=== PATIENT | female | born 1940 | race Caucasian/White ===

== ENCOUNTER 2017-04-13 16:41 | Inpatient (IN) | payer MEDICAID, MEDICARE ==
[~2017-04-13] VITALS: Ht 170.2 cm; Wt 91.2 kg
[2017-04-13 17:39] LABS: BASOPHILS # (AUTO) 0.1 /CMM (0.0-0.2); BASOPHILS % (AUTO) 0.6 % (0.0-2.0); EOSINOPHILS # (AUTO) 0.1 /CMM (0.0-0.7); EOSINOPHILS % (AUTO) 0.4 % (0.0-6.0); HEMATOCRIT 34 % (33-45); HEMOGLOBIN 11.1 g/dL (11.5-14.8); LYMPHOCYTES # (AUTO) 2.9 /CMM (0.8-4.8); MEAN CORPUSCULAR HEMOGLOBIN 30 PG (26.0-33.0); MEAN CORPUSCULAR HGB CONC 33 g/dl (31.0-36.0); MEAN CORPUSCULAR VOLUME 93 fL (82-100); MONOCYTES % (AUTO) 6.8 % (2.0-12.0); NEUTROPHILS # (AUTO) 11.3 /CMM (1.8-8.9); NEUTROPHILS % (AUTO) 73.2 % (43.0-81.0); PLATELET COUNT (AUTO) 388 /CMM (150-450); RDW COEFFICIENT OF VARIATION 18.8 (11.5-15.0); RED BLOOD CELL COUNT(AUTO) 3.68 MIL/uL (4.0-5.2); WHITE BLOOD COUNT (AUTO) 15.4 K/uL (4.3-11.0)
[2017-04-13 17:49] LABS: CALCIUM, SERUM 9.2 mg/dL (8.5-10.1); CARBON DIOXIDE 25 mmol/L (21-32); CHLORIDE 106 mmol/L (98-107); CREATININE 1.2 mg/dL (0.6-1.3); GLUCOSE 155 mg/dL (74-106); POTASSIUM 3.7 mmol/L (3.5-5.1); SODIUM SERUM 138 mmol/L (136-145); UREA NITROGEN, BLOOD 42 mg/dL (7-18)
[2017-04-13 17:56] LABS: APPEARANCE,URINE Clear (CLEAR); BILIRUBIN,URINE Negative (NEGATIVE); BLOOD, URINE Negative Ery/uL (NEGATIVE); COLOR,URINE Yellow (YELLOW); KETONES,URINE Negative (NEGATIVE); LEUKOCYTE ESTERASE ,URINE Negative (NEGATIVE); NITRITE, URINE Negative (NEGATIVE); PROTEIN,URINE 30 mg/dl (NEGATIVE); UGLUCOSE Negative (NEGATIVE); UROBILINOGEN,URINE 0.2 EU/dL (0.2)
[2017-04-13] MEDS ORDERED: CHLO473M3 MM (19:20)
[2017-04-13] MEDS ORDERED: PRED20TA GT (19:20)
[2017-04-13] MEDS ORDERED: LANS30CA56 GT (19:20)
[2017-04-13] MEDS ORDERED: LEVO125T8 GT (19:20)
[2017-04-13] MEDS ORDERED: METO5SOL20 GT (19:20)
[2017-04-13] MEDS ORDERED: METO50TA3 GT (19:20)
[2017-04-13] MEDS ORDERED: MELA3TAB GT (19:20)
[2017-04-13] MEDS ORDERED: INSU3INS6 SQ (19:20)
[2017-04-13] MEDS ORDERED: HYDR-552 GT (19:20)
[2017-04-13] MEDS ORDERED: VIT1TABL46 GT (19:20)
[2017-04-13] MEDS ORDERED: ESCI10TA GT (19:20)
[2017-04-13] MEDS ORDERED: ACET325T53 GT (19:20)
[2017-04-13] MEDS ORDERED: LORA1TAB GT (19:20)
[2017-04-13] MEDS ORDERED: CLON0.1T GT (19:20)
[2017-04-13] MEDS ORDERED: DEXT15DR6 EACHEYE (19:20)
[2017-04-13] MEDS ORDERED: INSU100V27 SQ (19:25)
[2017-04-13 20:00] VITALS: BP_SYST 162; BP_DIAS 68; BP_DIAS 93
[2017-04-13] MEDS ORDERED: HYDROCODONE/APAP 5/325MG 1 EACH TABLET PO PRN (20:30)
[2017-04-13] MEDS ORDERED: MAG HYDROX/AL HYDROX/SIMETH 30 ML UDC GT PRN (20:30)
[2017-04-13] MEDS ORDERED: POLYVINYL ALCOHOL 15 ML BOTTLE EACHEYE PRN (20:30)
[2017-04-13] MEDS ORDERED: Z GUARD REMEDY 2 OZ OINT TP PRN (20:30)
[2017-04-13] MEDS ORDERED: ONDANSETRON HCL/PF 4 MG/2 ML VIAL IVP PRN (20:30)
[2017-04-13] MEDS ORDERED: ACETAMINOPHEN 325 MG TABLET PO PRN (20:30)
[2017-04-13] MEDS ORDERED: INSULIN LISPRO SQ SCH (20:30)
[2017-04-13] MEDS ORDERED: DEXTROSE 50%-WATER 50 ML DISP.SYRIN IV PRN (21:00)
[2017-04-13] MEDS: METOCLOPRAMIDE HCL 10 MG/10 ML UDC GT SCH (21:07)
[2017-04-13] MEDS: CHLORHEXIDINE GLUCONATE 15 ML UDC MM SCH (21:07)
[2017-04-13] MEDS: LORAZEPAM 1 MG TABLET GT PRN (21:08)
[2017-04-13] MEDS: HYDROCODONE/APAP 5/325MG 1 EACH TABLET GT PRN (21:09)
[2017-04-13] MEDS ORDERED: BLOOD SUGAR DIAGNOSTIC 1 EACH STRIP IN SCH (22:00)
[2017-04-13] MEDS: ZOLPIDEM TARTRATE 5 MG TABLET GT PRN (22:31)
[2017-04-14] VITALS: BP 136/58
[2017-04-14] MEDS: BLOOD SUGAR DIAGNOSTIC 1 EACH STRIP IN SCH ×4 (00:29→17:13)
[2017-04-14] MEDS ORDERED: NA PHOS,M-B/NA PHOS,DI-BA 1 EA ENEMA RC ONE (01:14)
[2017-04-14] MEDS: NA PHOS,M-B/NA PHOS,DI-BA 1 EA ENEMA RC PRN ×2 (01:20→14:19)
[2017-04-14] MEDS: MAGNESIUM HYDROXIDE 30 ML UDC GT PRN ×2 (01:37→14:11)
[2017-04-14 04:00] VITALS: BP 166/93
[2017-04-14] MEDS: CLONIDINE HCL 0.1 MG TABLET GT PRN (04:21)
[2017-04-14] MEDS: HYDROCODONE/APAP 5/325MG 1 EACH TABLET GT PRN ×3 (04:21→21:43)
[2017-04-14] MEDS: INSULIN DETEMIR 100 UNIT/ML CARTRIDGE SQ SCH (06:15)
[2017-04-14] MEDS: INSULIN ASPART NOVOLOG 100 UNIT/ML CARTRIDGE SQ PRN ×2 (06:17→17:21)
[2017-04-14 06:30] LABS: BASOPHILS # (AUTO) 0.1 /CMM (0.0-0.2); BASOPHILS % (AUTO) 0.5 % (0.0-2.0); EOSINOPHILS # (AUTO) 0.2 /CMM (0.0-0.7); HEMATOCRIT 34 % (33-45); HEMOGLOBIN 10.9 g/dL (11.5-14.8); LYMPHOCYTES # (AUTO) 2.9 /CMM (0.8-4.8); LYMPHOCYTES % (AUTO) 27.7 % (20.0-44.0); MEAN CORPUSCULAR HEMOGLOBIN 30 PG (26.0-33.0); MEAN CORPUSCULAR HGB CONC 32 g/dl (31.0-36.0); MEAN CORPUSCULAR VOLUME 95 fL (82-100); MONOCYTES # (AUTO) 1.4 /CMM (0.1-1.30); MONOCYTES % (AUTO) 13.6 % (2.0-12.0); NEUTROPHILS # (AUTO) 5.9 /CMM (1.8-8.9); NEUTROPHILS % (AUTO) 56.2 % (43.0-81.0); PLATELET COUNT (AUTO) 337 /CMM (150-450); RED BLOOD CELL COUNT(AUTO) 3.58 MIL/uL (4.0-5.2); WHITE BLOOD COUNT (AUTO) 10.4 K/uL (4.3-11.0)
[2017-04-14 06:59] LABS: CALCIUM, SERUM 9.2 mg/dL (8.5-10.1); CARBON DIOXIDE 25 mmol/L (21-32); CHLORIDE 104 mmol/L (98-107); CREATININE 1.2 mg/dL (0.6-1.3); GLUCOSE 195 mg/dL (74-106); MAGNESIUM 2.2 mg/dL (1.8-2.4); PHOSPHORUS 2.7 mg/dL (2.5-4.9); POTASSIUM 3.3 mmol/L (3.5-5.1); SODIUM SERUM 138 mmol/L (136-145); UREA NITROGEN, BLOOD 44 mg/dL (7-18)
[2017-04-14 07:57] LABS: CHOLESTEROL 160 mg/dL (<200); TRIGLYCERIDES 165 mg/dL (30-150)
[2017-04-14 07:58] LABS: HDL CHOLESTEROL 47 mg/dL (40-60); LDL 79 mg/dL (0-99)
[2017-04-14 08:00] VITALS: BP 131/78
[2017-04-14] MEDS: METOCLOPRAMIDE HCL 10 MG/10 ML UDC GT SCH ×3 (09:25→17:11)
[2017-04-14] MEDS: ESCITALOPRAM OXALATE (10 MG) 10 MG TABLET GT SCH (09:25)
[2017-04-14] MEDS: LEVOTHYROXINE SODIUM 125 MCG TABLET GT SCH (09:25)
[2017-04-14] MEDS: PANTOPRAZOLE 40 MG/PACK PACK GT SCH ×2 (09:25→17:12)
[2017-04-14] MEDS: CHLORHEXIDINE GLUCONATE 15 ML UDC MM SCH ×2 (09:26→20:53)
[2017-04-14] MEDS: predniSONE 20 MG TABLET GT SCH (09:26)
[2017-04-14] MEDS: METOPROLOL TARTRATE 50 MG TABLET GT SCH ×2 (09:30→17:12)
[2017-04-14 12:00] VITALS: BP 125/64
[2017-04-14] MEDS ORDERED: ASPIRIN 325 MG TABLET PO SCH (12:00)
[2017-04-14] MEDS ORDERED: NITROGLYCERIN 0.4 MG/TAB BOTTLE SL PRN (12:00)
[2017-04-14 16:00] VITALS: BP 124/69
[2017-04-14] MEDS: VIT B CMPLX 3/FA/VIT C/BIOTIN 1 TAB TABLET GT SCH (17:12)
[2017-04-14] MEDS ORDERED: Medication Not On Formulary EA (Melatonin 3 MG) GT SCH (18:00)
[2017-04-14 20:00] VITALS: BP 144/85
[2017-04-14] MEDS: LORAZEPAM 1 MG TABLET GT PRN (20:53)
[2017-04-14] MEDS: ZOLPIDEM TARTRATE 5 MG TABLET GT PRN (21:43)
[2017-04-15] VITALS: BP 146/84
[2017-04-15] MEDS: LORAZEPAM 1 MG TABLET GT PRN ×2 (00:10→22:17)
[2017-04-15] MEDS: BLOOD SUGAR DIAGNOSTIC 1 EACH STRIP IN SCH ×4 (00:14→17:49)
[2017-04-15] MEDS: HYDROCODONE/APAP 5/325MG 1 EACH TABLET GT PRN ×2 (03:08→21:21)
[2017-04-15 04:00] VITALS: BP 106/82
[2017-04-15] MEDS: INSULIN ASPART NOVOLOG 100 UNIT/ML CARTRIDGE SQ PRN ×2 (06:00→17:58)
[2017-04-15] MEDS: INSULIN DETEMIR 100 UNIT/ML CARTRIDGE SQ SCH (06:01)
[2017-04-15] MEDS ORDERED: GLYTROL 1,000 ML BAG GT SCH ×2 (06:30→07:42)
[2017-04-15 08:00] VITALS: BP 154/90
[2017-04-15] MEDS: predniSONE 20 MG TABLET GT SCH (08:49)
[2017-04-15] MEDS: ESCITALOPRAM OXALATE (10 MG) 10 MG TABLET GT SCH (08:50)
[2017-04-15] MEDS: PANTOPRAZOLE 40 MG/PACK PACK GT SCH ×2 (08:50→17:48)
[2017-04-15] MEDS: CHLORHEXIDINE GLUCONATE 15 ML UDC MM SCH ×2 (08:50→21:15)
[2017-04-15] MEDS: METOCLOPRAMIDE HCL 10 MG/10 ML UDC GT SCH ×3 (08:50→17:48)
[2017-04-15] MEDS: METOPROLOL TARTRATE 50 MG TABLET GT SCH ×2 (08:50→17:48)
[2017-04-15] MEDS: LEVOTHYROXINE SODIUM 125 MCG TABLET GT SCH (08:55)
[2017-04-15] MEDS: MAGNESIUM HYDROXIDE 30 ML UDC GT PRN (09:00)
[2017-04-15 12:00] VITALS: BP 146/76
[2017-04-15] MEDS ORDERED: ASPIRIN 325 MG TABLET PO SCH (12:00)
[2017-04-15 16:00] VITALS: BP 149/63
[2017-04-15] MEDS: VIT B CMPLX 3/FA/VIT C/BIOTIN 1 TAB TABLET GT SCH (17:48)
[2017-04-15 20:00] VITALS: BP 143/70
[2017-04-16] VITALS: BP 158/87
[2017-04-16] MEDS: BLOOD SUGAR DIAGNOSTIC 1 EACH STRIP IN SCH ×4 (00:53→17:16)
[2017-04-16] MEDS: ZOLPIDEM TARTRATE 5 MG TABLET GT PRN (00:54)
[2017-04-16 04:00] VITALS: BP 153/100
[2017-04-16] MEDS: INSULIN DETEMIR 100 UNIT/ML CARTRIDGE SQ SCH (05:52)
[2017-04-16 07:54] LABS: CALCIUM, SERUM 9.2 mg/dL (8.5-10.1); CARBON DIOXIDE 26 mmol/L (21-32); CHLORIDE 102 mmol/L (98-107); CREATININE 1.3 mg/dL (0.6-1.3); GLUCOSE 167 mg/dL (74-106); POTASSIUM 4.6 mmol/L (3.5-5.1); SODIUM SERUM 134 mmol/L (136-145); UREA NITROGEN, BLOOD 41 mg/dL (7-18)
[2017-04-16 08:00] VITALS: BP 161/91
[2017-04-16] MEDS: CHLORHEXIDINE GLUCONATE 15 ML UDC MM SCH ×2 (08:26→21:47)
[2017-04-16] MEDS: ESCITALOPRAM OXALATE (10 MG) 10 MG TABLET GT SCH (08:27)
[2017-04-16] MEDS: predniSONE 20 MG TABLET GT SCH (08:27)
[2017-04-16] MEDS: METOCLOPRAMIDE HCL 10 MG/10 ML UDC GT SCH ×3 (08:28→17:15)
[2017-04-16] MEDS: PANTOPRAZOLE 40 MG/PACK PACK GT SCH ×2 (08:28→17:14)
[2017-04-16] MEDS: METOPROLOL TARTRATE 50 MG TABLET GT SCH ×2 (08:32→16:53)
[2017-04-16] MEDS: LEVOTHYROXINE SODIUM 125 MCG TABLET GT SCH (08:33)
[2017-04-16 10:37] LABS: BASOPHILS % (AUTO) 0.3 % (0.0-2.0); EOSINOPHILS # (AUTO) 0.1 /CMM (0.0-0.7); EOSINOPHILS % (AUTO) 1.1 % (0.0-6.0); HEMATOCRIT 37 % (33-45); HEMOGLOBIN 11.3 g/dL (11.5-14.8); LYMPHOCYTES # (AUTO) 2.7 /CMM (0.8-4.8); LYMPHOCYTES % (AUTO) 25.2 % (20.0-44.0); MEAN CORPUSCULAR HEMOGLOBIN 30 PG (26.0-33.0); MEAN CORPUSCULAR HGB CONC 31 g/dl (31.0-36.0); MEAN CORPUSCULAR VOLUME 96 fL (82-100); MONOCYTES # (AUTO) 1.3 /CMM (0.1-1.30); MONOCYTES % (AUTO) 11.9 % (2.0-12.0); NEUTROPHILS # (AUTO) 6.7 /CMM (1.8-8.9); NEUTROPHILS % (AUTO) 61.5 % (43.0-81.0); PLATELET COUNT (AUTO) 334 /CMM (150-450); RDW COEFFICIENT OF VARIATION 20.3 (11.5-15.0); RED BLOOD CELL COUNT(AUTO) 3.83 MIL/uL (4.0-5.2); WHITE BLOOD COUNT (AUTO) 10.9 K/uL (4.3-11.0)
[2017-04-16 11:31] VITALS: BP 162/93
[2017-04-16] MEDS: LORAZEPAM 1 MG TABLET GT PRN ×2 (11:47→23:46)
[2017-04-16] MEDS: INSULIN ASPART NOVOLOG 100 UNIT/ML CARTRIDGE SQ PRN ×2 (11:59→17:20)
[2017-04-16] MEDS: RENAL NOVASOURCE 1,000 ML BOTTLE GT PRN (15:16)
[2017-04-16] MEDS: HYDROCODONE/APAP 5/325MG 1 EACH TABLET GT PRN ×2 (15:23→21:47)
[2017-04-16 16:00] VITALS: BP 142/75
[2017-04-16] MEDS: VIT B CMPLX 3/FA/VIT C/BIOTIN 1 TAB TABLET GT SCH (17:21)
[2017-04-16 20:00] VITALS: BP 146/100
[2017-04-17] VITALS (7 sets, daily range): BP systolic 141–160; BP diastolic 76–101
[2017-04-17] MEDS: BLOOD SUGAR DIAGNOSTIC 1 EACH STRIP IN SCH ×5 (00:16→23:33)
[2017-04-17] MEDS: ZOLPIDEM TARTRATE 5 MG TABLET GT PRN (02:02)
[2017-04-17] MEDS: CLONIDINE HCL 0.1 MG TABLET GT PRN (04:52)
[2017-04-17] MEDS: INSULIN DETEMIR 100 UNIT/ML CARTRIDGE SQ SCH (06:18)
[2017-04-17] MEDS: INSULIN ASPART NOVOLOG 100 UNIT/ML CARTRIDGE SQ PRN ×3 (06:18→17:38)
[2017-04-17 08:26] LABS: CALCIUM, SERUM 8.7 mg/dL (8.5-10.1); CARBON DIOXIDE 30 mmol/L (21-32); CREATININE 1.3 mg/dL (0.6-1.3); GLUCOSE 173 mg/dL (74-106); UREA NITROGEN, BLOOD 33 mg/dL (7-18)
[2017-04-17 10:06] LABS: CHLORIDE 103 mmol/L (98-107); POTASSIUM 4.9 mmol/L (3.5-5.1); SODIUM SERUM 139 mmol/L (136-145)
[2017-04-17] MEDS: ESCITALOPRAM OXALATE (10 MG) 10 MG TABLET GT SCH (11:06)
[2017-04-17] MEDS: LEVOTHYROXINE SODIUM 125 MCG TABLET GT SCH (11:06)
[2017-04-17] MEDS: PANTOPRAZOLE 40 MG/PACK PACK GT SCH ×2 (11:06→17:30)
[2017-04-17] MEDS: METOPROLOL TARTRATE 50 MG TABLET GT SCH ×2 (11:06→17:42)
[2017-04-17] MEDS: predniSONE 20 MG TABLET GT SCH (11:06)
[2017-04-17] MEDS: CHLORHEXIDINE GLUCONATE 15 ML UDC MM SCH ×2 (11:07→21:58)
[2017-04-17] MEDS: METOCLOPRAMIDE HCL 10 MG/10 ML UDC GT SCH ×3 (11:07→17:35)
[2017-04-17] MEDS: LORAZEPAM 1 MG TABLET GT PRN (17:31)
[2017-04-17] MEDS: VIT B CMPLX 3/FA/VIT C/BIOTIN 1 TAB TABLET GT SCH (17:31)
[2017-04-17] MEDS: RENAL NOVASOURCE 1,000 ML BOTTLE GT PRN (17:52)
[2017-04-18] VITALS (7 sets, daily range): BP systolic 118–155; BP diastolic 69–88
[2017-04-18] MEDS: INSULIN ASPART NOVOLOG 100 UNIT/ML CARTRIDGE SQ PRN ×5 (05:38→23:44)
[2017-04-18] MEDS: INSULIN DETEMIR 100 UNIT/ML CARTRIDGE SQ SCH (05:39)
[2017-04-18] MEDS: BLOOD SUGAR DIAGNOSTIC 1 EACH STRIP IN SCH ×4 (05:40→23:41)
[2017-04-18] MEDS ORDERED: ALTEPLASE CATHFLO 2 MG/VIAL IV ONE (07:30)
[2017-04-18 07:41] LABS: BASOPHILS % (AUTO) 0.4 % (0.0-2.0); EOSINOPHILS # (AUTO) 0.2 /CMM (0.0-0.7); EOSINOPHILS % (AUTO) 2.4 % (0.0-6.0); HEMATOCRIT 34 % (33-45); HEMOGLOBIN 10.9 g/dL (11.5-14.8); LYMPHOCYTES # (AUTO) 2.2 /CMM (0.8-4.8); LYMPHOCYTES % (AUTO) 25.6 % (20.0-44.0); MEAN CORPUSCULAR HEMOGLOBIN 30 PG (26.0-33.0); MEAN CORPUSCULAR HGB CONC 32 g/dl (31.0-36.0); MEAN CORPUSCULAR VOLUME 95 fL (82-100); MONOCYTES # (AUTO) 0.7 /CMM (0.1-1.30); MONOCYTES % (AUTO) 8.3 % (2.0-12.0); NEUTROPHILS # (AUTO) 5.4 /CMM (1.8-8.9); NEUTROPHILS % (AUTO) 63.3 % (43.0-81.0); PLATELET COUNT (AUTO) 247 /CMM (150-450); RDW COEFFICIENT OF VARIATION 19.4 (11.5-15.0); RED BLOOD CELL COUNT(AUTO) 3.63 MIL/uL (4.0-5.2); WHITE BLOOD COUNT (AUTO) 8.5 K/uL (4.3-11.0)
[2017-04-18] MEDS: HYDROCODONE/APAP 5/325MG 1 EACH TABLET GT PRN (08:23)
[2017-04-18] MEDS: METOCLOPRAMIDE HCL 10 MG/10 ML UDC GT SCH ×3 (08:24→17:10)
[2017-04-18] MEDS: ESCITALOPRAM OXALATE (10 MG) 10 MG TABLET GT SCH (08:24)
[2017-04-18] MEDS: LEVOTHYROXINE SODIUM 125 MCG TABLET GT SCH (08:24)
[2017-04-18] MEDS: PANTOPRAZOLE 40 MG/PACK PACK GT SCH ×2 (08:24→17:10)
[2017-04-18] MEDS: CHLORHEXIDINE GLUCONATE 15 ML UDC MM SCH ×2 (08:24→20:57)
[2017-04-18] MEDS: predniSONE 20 MG TABLET GT SCH (08:24)
[2017-04-18] MEDS: METOPROLOL TARTRATE 50 MG TABLET GT SCH ×2 (08:25→17:10)
[2017-04-18] MEDS: LORAZEPAM 1 MG TABLET GT PRN ×3 (08:46→20:57)
[2017-04-18] MEDS: VIT B CMPLX 3/FA/VIT C/BIOTIN 1 TAB TABLET GT SCH (17:10)
[2017-04-18] MEDS: RENAL NOVASOURCE 1,000 ML BOTTLE GT PRN (17:11)
[2017-04-18] MEDS: MAGNESIUM HYDROXIDE 30 ML UDC GT PRN (20:57)
[2017-04-18] MEDS: ZOLPIDEM TARTRATE 5 MG TABLET GT PRN (23:46)
[2017-04-19] MEDS: BLOOD SUGAR DIAGNOSTIC 1 EACH STRIP IN SCH ×3 (05:51→17:13)
[2017-04-19] MEDS: INSULIN DETEMIR 100 UNIT/ML CARTRIDGE SQ SCH (05:55)
[2017-04-19] MEDS: INSULIN ASPART NOVOLOG 100 UNIT/ML CARTRIDGE SQ PRN ×3 (05:56→17:23)
[2017-04-19 07:02] LABS: CALCIUM, SERUM 8.2 mg/dL (8.5-10.1); CARBON DIOXIDE 32 mmol/L (21-32); CHLORIDE 101 mmol/L (98-107); CREATININE 1.5 mg/dL (0.6-1.3); GLUCOSE 159 mg/dL (74-106); POTASSIUM 4.9 mmol/L (3.5-5.1); SODIUM SERUM 136 mmol/L (136-145); UREA NITROGEN, BLOOD 51 mg/dL (7-18)
[2017-04-19 08:00] VITALS: BP 159/85
[2017-04-19 08:23] LABS: BASOPHILS % (AUTO) 0.1 % (0.0-2.0); EOSINOPHILS # (AUTO) 0.2 /CMM (0.0-0.7); EOSINOPHILS % (AUTO) 1.3 % (0.0-6.0); HEMATOCRIT 35 % (33-45); HEMOGLOBIN 10.9 g/dL (11.5-14.8); LYMPHOCYTES # (AUTO) 3.5 /CMM (0.8-4.8); LYMPHOCYTES % (AUTO) 25.9 % (20.0-44.0); MEAN CORPUSCULAR HEMOGLOBIN 30 PG (26.0-33.0); MEAN CORPUSCULAR HGB CONC 32 g/dl (31.0-36.0); MEAN CORPUSCULAR VOLUME 95 fL (82-100); MONOCYTES # (AUTO) 1.5 /CMM (0.1-1.30); MONOCYTES % (AUTO) 11.2 % (2.0-12.0); NEUTROPHILS # (AUTO) 8.3 /CMM (1.8-8.9); NEUTROPHILS % (AUTO) 61.5 % (43.0-81.0); PLATELET COUNT (AUTO) 266 /CMM (150-450); RDW COEFFICIENT OF VARIATION 19.3 (11.5-15.0); RED BLOOD CELL COUNT(AUTO) 3.66 MIL/uL (4.0-5.2); WHITE BLOOD COUNT (AUTO) 13.6 K/uL (4.3-11.0)
[2017-04-19] MEDS: CHLORHEXIDINE GLUCONATE 15 ML UDC MM SCH ×2 (08:48→21:00)
[2017-04-19] MEDS: PANTOPRAZOLE 40 MG/PACK PACK GT SCH ×2 (08:49→17:13)
[2017-04-19] MEDS: LEVOTHYROXINE SODIUM 125 MCG TABLET GT SCH (08:49)
[2017-04-19] MEDS: METOCLOPRAMIDE HCL 10 MG/10 ML UDC GT SCH ×3 (08:49→17:13)
[2017-04-19] MEDS: METOPROLOL TARTRATE 50 MG TABLET GT SCH ×2 (08:49→17:13)
[2017-04-19] MEDS: predniSONE 20 MG TABLET GT SCH (08:49)
[2017-04-19] MEDS: ESCITALOPRAM OXALATE (10 MG) 10 MG TABLET GT SCH (08:49)
[2017-04-19] MEDS: HYDROCODONE/APAP 5/325MG 1 EACH TABLET GT PRN ×2 (08:59→21:02)
[2017-04-19] MEDS: LORAZEPAM 1 MG TABLET GT PRN (12:06)
[2017-04-19] MEDS: AMLODIPINE BESYLATE 5 MG TABLET PO SCH (13:01)
[2017-04-19] MEDS: NA PHOS,M-B/NA PHOS,DI-BA 1 EA ENEMA RC PRN (13:01)
[2017-04-19] MEDS ORDERED: LIDOCAINE 1%-EPI 1:100,000 20 ML VIAL TP ONE (15:30)
[2017-04-19 16:00] VITALS: BP 135/74
[2017-04-19] MEDS ORDERED: LIDOCAINE 1% INJ 50 ML MDV IJ ONE (16:30)
[2017-04-19] MEDS: VIT B CMPLX 3/FA/VIT C/BIOTIN 1 TAB TABLET GT SCH (17:13)
[2017-04-19 20:00] VITALS: BP 121/87
[2017-04-19] MEDS: RENAL NOVASOURCE 1,000 ML BOTTLE GT PRN (21:02)
[2017-04-20] VITALS (43 sets, daily range): BP systolic 51–143; BP diastolic 31–94
[2017-04-20] MEDS: LORAZEPAM 1 MG TABLET GT PRN (00:05)
[2017-04-20] MEDS: BLOOD SUGAR DIAGNOSTIC 1 EACH STRIP IN SCH ×4 (00:14→18:31)
[2017-04-20] MEDS ORDERED: IV NS 0.9% 0 ML ONE (03:21)
[2017-04-20] MEDS: INSULIN DETEMIR 100 UNIT/ML CARTRIDGE SQ SCH (05:25)
[2017-04-20 05:31] LABS: BASOPHILS # (AUTO) 0.1 /CMM (0.0-0.2); BASOPHILS % (AUTO) 0.3 % (0.0-2.0); EOSINOPHILS % (AUTO) 0.2 % (0.0-6.0); HEMATOCRIT 30 % (33-45); HEMOGLOBIN 9.9 g/dL (11.5-14.8); LYMPHOCYTES # (AUTO) 3.5 /CMM (0.8-4.8); LYMPHOCYTES % (AUTO) 15.9 % (20.0-44.0); MEAN CORPUSCULAR HEMOGLOBIN 30 PG (26.0-33.0); MEAN CORPUSCULAR HGB CONC 33 g/dl (31.0-36.0); MEAN CORPUSCULAR VOLUME 94 fL (82-100); MONOCYTES # (AUTO) 1.5 /CMM (0.1-1.30); NEUTROPHILS # (AUTO) 16.6 /CMM (1.8-8.9); NEUTROPHILS % (AUTO) 76.6 % (43.0-81.0); PLATELET COUNT (AUTO) 243 /CMM (150-450); RDW COEFFICIENT OF VARIATION 18.6 (11.5-15.0); RED BLOOD CELL COUNT(AUTO) 3.25 MIL/uL (4.0-5.2); WHITE BLOOD COUNT (AUTO) 21.7 K/uL (4.3-11.0)
[2017-04-20 05:47] LABS: CALCIUM, SERUM 8.6 mg/dL (8.5-10.1); CARBON DIOXIDE 33 mmol/L (21-32); CHLORIDE 99 mmol/L (98-107); CREATININE 1.7 mg/dL (0.6-1.3); GLUCOSE 170 mg/dL (74-106); MAGNESIUM 2.6 mg/dL (1.8-2.4); PHOSPHORUS 2.7 mg/dL (2.5-4.9); POTASSIUM 5.5 mmol/L (3.5-5.1); SODIUM SERUM 136 mmol/L (136-145); UREA NITROGEN, BLOOD 59 mg/dL (7-18)
[2017-04-20 06:00] LABS: INR 0.92 (0.87-1.13); PROTHROMBIN TIME 9.8 SECS (9.5-12.7)
[2017-04-20] MEDS: LEVOTHYROXINE SODIUM 125 MCG TABLET GT SCH (09:00)
[2017-04-20] MEDS: CHLORHEXIDINE GLUCONATE 15 ML UDC MM SCH ×2 (09:00→21:25)
[2017-04-20] MEDS: METOPROLOL TARTRATE 50 MG TABLET GT SCH ×2 (09:00→17:00)
[2017-04-20] MEDS: PANTOPRAZOLE 40 MG/PACK PACK GT SCH ×2 (09:00→17:00)
[2017-04-20] MEDS: predniSONE 20 MG TABLET GT SCH (09:00)
[2017-04-20] MEDS: AMLODIPINE BESYLATE 5 MG TABLET PO SCH (09:00)
[2017-04-20] MEDS: METOCLOPRAMIDE HCL 10 MG/10 ML UDC GT SCH ×3 (09:00→17:00)
[2017-04-20] MEDS: ESCITALOPRAM OXALATE (10 MG) 10 MG TABLET GT SCH (09:00)
[2017-04-20] MEDS ORDERED: BACITRACIN 50000 UNITS/VIAL ONE (09:35)
[2017-04-20] MEDS ORDERED: FENTANYL PF 100MCG/2ML AMPUL ONE (10:43)
[2017-04-20] MEDS ORDERED: ROCURONIUM BROMIDE 50 MG/5 ML ONE (10:44)
[2017-04-20] MEDS ORDERED: VANCOMYCIN 1 GM VIAL ONE (10:52)
[2017-04-20] MEDS ORDERED: HEPARIN SODIUM, PORCINE 1,000 UNIT/ML VIAL ONE (11:21)
[2017-04-20] MEDS ORDERED: GELATIN SPONGE,ABSORBABLE 1 EA SPONGE TP ONE (11:26)
[2017-04-20] MEDS ORDERED: THROMBIN (BOVINE) 5,000 UNITS VIAL TP ONE (11:27)
[2017-04-20] MEDS ORDERED: CELLULOSE,OXIDIZED 1 EA PACK MC ONE (11:27)
[2017-04-20] MEDS ORDERED: EPHEDRINE SULFATE IV 50MG VIAL ONE (12:03)
[2017-04-20] MEDS ORDERED: FEE PK DOSING 1 MIN EA MC ONE (13:15)
[2017-04-20] MEDS ORDERED: ANESTHESIA TRAY IN PYXIS 1 EA TRAY MC ONE (13:29)
[2017-04-20] MEDS: LEVOFLOXACIN 250 MG /D5W 50 ML 250 MG in PREMIX 1 EA IV SCH (14:00)
[2017-04-20] MEDS ORDERED: VANCOMYCIN 1 GM in IV D5W 250 ML IV ONE (14:00)
[2017-04-20] MEDS ORDERED: SECONDARY IV SET 1 EA INFUS.SET MC ONE (15:45)
[2017-04-20] MEDS ORDERED: IV SET PRIMARY PUMP SET 1 EA INFUS.SET MC ONE ×2 (15:45→18:34)
[2017-04-20] MEDS: HYDROCODONE/APAP 5/325MG 1 EACH TABLET GT PRN (15:52)
[2017-04-20] MEDS ORDERED: ALBUMIN 25% 12.5 GM in PREMIX 1 EA IV PRN (16:30)
[2017-04-20] MEDS ORDERED: ALBUMIN 25% 25 GM in PREMIX 1 EA IV PRN (17:00)
[2017-04-20] MEDS ORDERED: IV NS 0.9% 1,000 ML ONE (17:23)
[2017-04-20] MEDS ORDERED: NOREPINEPHRINE 16 MG in IV D5W 500 ML IV PRN (18:30)
[2017-04-20] MEDS: VIT B CMPLX 3/FA/VIT C/BIOTIN 1 TAB TABLET GT SCH (18:32)
[2017-04-21] VITALS (79 sets, daily range): BP systolic 70–163; BP diastolic 44–104
[2017-04-21] MEDS: RENAL NOVASOURCE 1,000 ML BOTTLE GT PRN (00:27)
[2017-04-21] MEDS: INSULIN ASPART NOVOLOG 100 UNIT/ML CARTRIDGE SQ PRN ×3 (00:28→17:44)
[2017-04-21] MEDS: BLOOD SUGAR DIAGNOSTIC 1 EACH STRIP IN SCH ×4 (01:07→17:33)
[2017-04-21 04:54] LABS: BASOPHILS # (AUTO) 0.1 /CMM (0.0-0.2); BASOPHILS % (AUTO) 0.3 % (0.0-2.0); EOSINOPHILS # (AUTO) 0.1 /CMM (0.0-0.7); EOSINOPHILS % (AUTO) 0.4 % (0.0-6.0); LYMPHOCYTES # (AUTO) 1.6 /CMM (0.8-4.8); LYMPHOCYTES % (AUTO) 6.3 % (20.0-44.0); MEAN CORPUSCULAR HEMOGLOBIN 30 PG (26.0-33.0); MEAN CORPUSCULAR HGB CONC 32 g/dl (31.0-36.0); MEAN CORPUSCULAR VOLUME 94 fL (82-100); MONOCYTES % (AUTO) 7.7 % (2.0-12.0); NEUTROPHILS % (AUTO) 85.3 % (43.0-81.0); PLATELET COUNT (AUTO) 189 /CMM (150-450); RED BLOOD CELL COUNT(AUTO) 2.08 MIL/uL (4.0-5.2); WHITE BLOOD COUNT (AUTO) 25.8 K/uL (4.3-11.0)
[2017-04-21 05:11] LABS: HEMATOCRIT 20 % (33-45)
[2017-04-21 05:15] LABS: HEMOGLOBIN 6.3 g/dL (11.5-14.8)
[2017-04-21 05:19] LABS: CALCIUM, SERUM 7.9 mg/dL (8.5-10.1); CARBON DIOXIDE 33 mmol/L (21-32); CHLORIDE 102 mmol/L (98-107); CREATININE 1.5 mg/dL (0.6-1.3); GLUCOSE 121 mg/dL (74-106); MAGNESIUM 2.2 mg/dL (1.8-2.4); PHOSPHORUS 2.9 mg/dL (2.5-4.9); POTASSIUM 4.5 mmol/L (3.5-5.1); SODIUM SERUM 139 mmol/L (136-145); UREA NITROGEN, BLOOD 42 mg/dL (7-18)
[2017-04-21] MEDS: INSULIN DETEMIR 100 UNIT/ML CARTRIDGE SQ SCH (05:43)
[2017-04-21 05:44] LABS: EOSINOPHILS % (MANUAL) 2 % (0-4); LYMPHOCYTES % (MANUAL) 9 % (16-48); MONOCYTES % (MANUAL) 5 % (0-11.0); NEUTROPHILS % (MANUAL) 84 (42-76)
[2017-04-21] MEDS ORDERED: IV NS 0.9% 250 ML IV ONE ×2 (08:24→18:18)
[2017-04-21] MEDS ORDERED: BLOOD IV SET 1 EA INFUS.SET MC ONE (08:24)
[2017-04-21] MEDS: CHLORHEXIDINE GLUCONATE 15 ML UDC MM SCH ×2 (09:37→21:59)
[2017-04-21] MEDS: METOCLOPRAMIDE HCL 10 MG/10 ML UDC GT SCH ×3 (09:37→17:32)
[2017-04-21] MEDS: LEVOTHYROXINE SODIUM 125 MCG TABLET GT SCH (09:38)
[2017-04-21] MEDS: AMLODIPINE BESYLATE 5 MG TABLET PO SCH (09:38)
[2017-04-21] MEDS: METOPROLOL TARTRATE 50 MG TABLET GT SCH ×2 (09:38→17:33)
[2017-04-21] MEDS: predniSONE 20 MG TABLET GT SCH (09:38)
[2017-04-21] MEDS: PANTOPRAZOLE 40 MG/PACK PACK GT SCH ×2 (09:38→17:32)
[2017-04-21] MEDS: ESCITALOPRAM OXALATE (10 MG) 10 MG TABLET GT SCH (09:38)
[2017-04-21] MEDS ORDERED: EPOETIN ALFA (10,000 UNIT) 10,000 UNIT/ML VIAL SQ ONE (10:00)
[2017-04-21] MEDS: VANCOMYCIN 500 MG in IV D5W 100 ML IV PRN (12:55)
[2017-04-21 14:43] LABS: ABG OXYGEN SATURATION 98.4 % (92.0-98.5); ABG PCO2 39.5 mmHg (35.0-45.0); ABG PH 7.481 (7.350-7.450); AaDO2 78.8 mmHg; COHb 0.8 % (0.5-1.5); O2Hb 96.6 % (94.0-97.0); PEEP,BG 5 cm H2O; SITE, ABG Left Radial; VT, ABG 450 mL
[2017-04-21] MEDS: LORAZEPAM 1 MG TABLET GT PRN (14:56)
[2017-04-21] MEDS: VIT B CMPLX 3/FA/VIT C/BIOTIN 1 TAB TABLET GT SCH (17:33)
[2017-04-22] VITALS (23 sets, daily range): BP systolic 92–162; BP diastolic 41–96
[2017-04-22] MEDS: ZOLPIDEM TARTRATE 5 MG TABLET GT PRN (00:35)
[2017-04-22] MEDS: BLOOD SUGAR DIAGNOSTIC 1 EACH STRIP IN SCH ×5 (00:35→23:47)
[2017-04-22] MEDS: INSULIN ASPART NOVOLOG 100 UNIT/ML CARTRIDGE SQ PRN ×4 (00:41→23:55)
[2017-04-22] MEDS: LORAZEPAM 1 MG TABLET GT PRN (02:43)
[2017-04-22 04:53] LABS: EOSINOPHILS % (AUTO) 0.1 % (0.0-6.0); HEMATOCRIT 26 % (33-45); HEMOGLOBIN 8.7 g/dL (11.5-14.8); LYMPHOCYTES # (AUTO) 2.4 /CMM (0.8-4.8); LYMPHOCYTES % (AUTO) 13.2 % (20.0-44.0); MEAN CORPUSCULAR HEMOGLOBIN 30 PG (26.0-33.0); MEAN CORPUSCULAR HGB CONC 33 g/dl (31.0-36.0); MEAN CORPUSCULAR VOLUME 91 fL (82-100); MONOCYTES # (AUTO) 1.7 /CMM (0.1-1.30); MONOCYTES % (AUTO) 9.6 % (2.0-12.0); NEUTROPHILS # (AUTO) 13.8 /CMM (1.8-8.9); NEUTROPHILS % (AUTO) 77.1 % (43.0-81.0); PLATELET COUNT (AUTO) 207 /CMM (150-450); RDW COEFFICIENT OF VARIATION 18.9 (11.5-15.0); RED BLOOD CELL COUNT(AUTO) 2.89 MIL/uL (4.0-5.2); WHITE BLOOD COUNT (AUTO) 17.9 K/uL (4.3-11.0)
[2017-04-22 05:09] LABS: CALCIUM, SERUM 8.1 mg/dL (8.5-10.1); CARBON DIOXIDE 35 mmol/L (21-32); CHLORIDE 98 mmol/L (98-107); CREATININE 1.5 mg/dL (0.6-1.3); GLUCOSE 164 mg/dL (74-106); MAGNESIUM 2.2 mg/dL (1.8-2.4); PHOSPHORUS 2.2 mg/dL (2.5-4.9); POTASSIUM 4.3 mmol/L (3.5-5.1); SODIUM SERUM 135 mmol/L (136-145); UREA NITROGEN, BLOOD 39 mg/dL (7-18)
[2017-04-22] MEDS: INSULIN DETEMIR 100 UNIT/ML CARTRIDGE SQ SCH (05:41)
[2017-04-22 08:59] LABS: ABG BASE EXCESS 5.4 mmol/L; ABG OXYGEN SATURATION 98.4 % (92.0-98.5); ABG PCO2 41.4 mmHg (35.0-45.0); ABG PH 7.471 (7.350-7.450); ABG PO2 135.1 mmHg (75.0-100.0); AaDO2 66.3 mmHg; MetHb 0.3 % (0.0-1.5); O2Hb 97.1 % (94.0-97.0); PEEP,BG 5 cm H2O; SITE, ABG Left Radial; VENT MODE, BG CPAP PSV 8
[2017-04-22] MEDS: METOPROLOL TARTRATE 50 MG TABLET GT SCH ×2 (09:11→17:11)
[2017-04-22] MEDS: PANTOPRAZOLE 40 MG/PACK PACK GT SCH ×2 (09:11→17:11)
[2017-04-22] MEDS: CHLORHEXIDINE GLUCONATE 15 ML UDC MM SCH ×2 (09:11→21:38)
[2017-04-22] MEDS: AMLODIPINE BESYLATE 5 MG TABLET PO SCH (09:11)
[2017-04-22] MEDS: ESCITALOPRAM OXALATE (10 MG) 10 MG TABLET GT SCH (09:11)
[2017-04-22] MEDS: METOCLOPRAMIDE HCL 10 MG/10 ML UDC GT SCH ×3 (09:11→17:11)
[2017-04-22] MEDS: predniSONE 20 MG TABLET GT SCH (09:12)
[2017-04-22] MEDS: LEVOTHYROXINE SODIUM 125 MCG TABLET GT SCH (09:15)
[2017-04-22] MEDS ORDERED: K PHOS NEUTRAL 250 MG TABLET PO ONE (13:30)
[2017-04-22] MEDS: LEVOFLOXACIN 250 MG /D5W 50 ML 250 MG in PREMIX 1 EA IV SCH (13:57)
[2017-04-22] MEDS: LACTOBACILLUS RHAMNOSUS GG 1 EACH CAP.SPRINK GT SCH (17:11)
[2017-04-22] MEDS: VIT B CMPLX 3/FA/VIT C/BIOTIN 1 TAB TABLET GT SCH (17:11)
[2017-04-22] MEDS: CLONIDINE HCL 0.1 MG TABLET GT PRN (21:39)
[2017-04-22] MEDS: HYDROCODONE/APAP 5/325MG 1 EACH TABLET GT PRN (23:47)
[2017-04-23] VITALS: BP 156/96
[2017-04-23 04:00] VITALS: BP 158/101
[2017-04-23] MEDS: BLOOD SUGAR DIAGNOSTIC 1 EACH STRIP IN SCH ×4 (05:34→23:27)
[2017-04-23] MEDS: INSULIN DETEMIR 100 UNIT/ML CARTRIDGE SQ SCH (05:35)
[2017-04-23] MEDS: HYDROCODONE/APAP 5/325MG 1 EACH TABLET GT PRN ×2 (05:36→21:26)
[2017-04-23 06:53] LABS: BASOPHILS % (AUTO) 0.1 % (0.0-2.0); EOSINOPHILS # (AUTO) 0.1 /CMM (0.0-0.7); EOSINOPHILS % (AUTO) 1.1 % (0.0-6.0); HEMATOCRIT 26 % (33-45); HEMOGLOBIN 8.6 g/dL (11.5-14.8); LYMPHOCYTES # (AUTO) 2.2 /CMM (0.8-4.8); LYMPHOCYTES % (AUTO) 19.2 % (20.0-44.0); MEAN CORPUSCULAR HEMOGLOBIN 30 PG (26.0-33.0); MEAN CORPUSCULAR HGB CONC 33 g/dl (31.0-36.0); MEAN CORPUSCULAR VOLUME 91 fL (82-100); MONOCYTES # (AUTO) 1.5 /CMM (0.1-1.30); MONOCYTES % (AUTO) 13.4 % (2.0-12.0); NEUTROPHILS # (AUTO) 7.5 /CMM (1.8-8.9); NEUTROPHILS % (AUTO) 66.2 % (43.0-81.0); PLATELET COUNT (AUTO) 250 /CMM (150-450); RDW COEFFICIENT OF VARIATION 18.4 (11.5-15.0); RED BLOOD CELL COUNT(AUTO) 2.86 MIL/uL (4.0-5.2); WHITE BLOOD COUNT (AUTO) 11.3 K/uL (4.3-11.0)
[2017-04-23 07:01] LABS: CALCIUM, SERUM 8.1 mg/dL (8.5-10.1); CARBON DIOXIDE 28 mmol/L (21-32); CHLORIDE 99 mmol/L (98-107); CREATININE 1.7 mg/dL (0.6-1.3); GLUCOSE 183 mg/dL (74-106); PHOSPHORUS 3.2 mg/dL (2.5-4.9); POTASSIUM 4.4 mmol/L (3.5-5.1); SODIUM SERUM 136 mmol/L (136-145); UREA NITROGEN, BLOOD 46 mg/dL (7-18); VANCOMYCIN,TROUGH 13 ug/ml (12-20)
[2017-04-23 08:00] VITALS: BP 136/74
[2017-04-23] MEDS: LACTOBACILLUS RHAMNOSUS GG 1 EACH CAP.SPRINK GT SCH ×2 (08:47→16:52)
[2017-04-23] MEDS: PANTOPRAZOLE 40 MG/PACK PACK GT SCH ×2 (08:47→16:53)
[2017-04-23] MEDS: ESCITALOPRAM OXALATE (10 MG) 10 MG TABLET GT SCH (08:48)
[2017-04-23] MEDS: AMLODIPINE BESYLATE 5 MG TABLET PO SCH (08:48)
[2017-04-23] MEDS: LEVOTHYROXINE SODIUM 125 MCG TABLET GT SCH (08:48)
[2017-04-23] MEDS: METOPROLOL TARTRATE 50 MG TABLET GT SCH ×2 (08:49→16:52)
[2017-04-23] MEDS: CHLORHEXIDINE GLUCONATE 15 ML UDC MM SCH ×2 (08:49→20:37)
[2017-04-23] MEDS: predniSONE 20 MG TABLET GT SCH (08:49)
[2017-04-23] MEDS: METOCLOPRAMIDE HCL 10 MG/10 ML UDC GT SCH ×3 (08:52→16:52)
[2017-04-23 12:00] VITALS: BP 155/90
[2017-04-23] MEDS: LORAZEPAM 1 MG TABLET GT PRN ×2 (12:44→23:44)
[2017-04-23 16:00] VITALS: BP 140/73
[2017-04-23] MEDS: VIT B CMPLX 3/FA/VIT C/BIOTIN 1 TAB TABLET GT SCH (16:52)
[2017-04-23] MEDS ORDERED: IV SET PRIMARY 1 EA INFUS.SET MC ONE (16:54)
[2017-04-23] MEDS ORDERED: VANCOMYCIN 1 GM in IV D5W 250 ML IV SCH (17:00)
[2017-04-23] MEDS ORDERED: IV SET PRIMARY PUMP SET 1 EA INFUS.SET MC ONE (17:07)
[2017-04-23] MEDS: INSULIN ASPART NOVOLOG 100 UNIT/ML CARTRIDGE SQ PRN ×2 (17:17→23:36)
[2017-04-23] MEDS ORDERED: FEE PK DOSING 1 MIN EA MC ONE (17:17)
[2017-04-23] MEDS ORDERED: GENTAMICIN 100 MG in IV D5W 100 ML IV ONE (18:00)
[2017-04-23 20:00] VITALS: BP 148/85
[2017-04-23] MEDS: CLONIDINE HCL 0.1 MG TABLET GT PRN (23:45)
[2017-04-24] VITALS (10 sets, daily range): BP systolic 125–163; BP diastolic 81–118
[2017-04-24] MEDS: BLOOD SUGAR DIAGNOSTIC 1 EACH STRIP IN SCH ×5 (05:35→21:39)
[2017-04-24] MEDS: INSULIN DETEMIR 100 UNIT/ML CARTRIDGE SQ SCH (05:40)
[2017-04-24 07:49] LABS: BASOPHILS % (AUTO) 0.3 % (0.0-2.0); EOSINOPHILS # (AUTO) 0.1 /CMM (0.0-0.7); EOSINOPHILS % (AUTO) 1.5 % (0.0-6.0); HEMATOCRIT 23 % (33-45); HEMOGLOBIN 7.4 g/dL (11.5-14.8); LYMPHOCYTES # (AUTO) 2.3 /CMM (0.8-4.8); LYMPHOCYTES % (AUTO) 26.2 % (20.0-44.0); MEAN CORPUSCULAR HEMOGLOBIN 30 PG (26.0-33.0); MEAN CORPUSCULAR HGB CONC 33 g/dl (31.0-36.0); MEAN CORPUSCULAR VOLUME 92 fL (82-100); MONOCYTES # (AUTO) 1.4 /CMM (0.1-1.30); MONOCYTES % (AUTO) 16.2 % (2.0-12.0); NEUTROPHILS # (AUTO) 4.9 /CMM (1.8-8.9); NEUTROPHILS % (AUTO) 55.8 % (43.0-81.0); PLATELET COUNT (AUTO) 240 /CMM (150-450); RDW COEFFICIENT OF VARIATION 17.9 (11.5-15.0); RED BLOOD CELL COUNT(AUTO) 2.49 MIL/uL (4.0-5.2); WHITE BLOOD COUNT (AUTO) 8.8 K/uL (4.3-11.0)
[2017-04-24 08:07] LABS: ALANINE AMINOTRANSFERASE 20 U/L (12-78); ALBUMIN 2.2 g/dL (3.4-5.0); ALKALINE PHOSPHATASE 81 U/L (46-116); ASPARTATE AMINOTRANSFERASE 18 U/L (15-37); BILIRUBIN,TOTAL 0.3 mg/dL (0.2-1.0); CALCIUM, SERUM 7.8 mg/dL (8.5-10.1); CARBON DIOXIDE 31 mmol/L (21-32); CHLORIDE 102 mmol/L (98-107); CREATININE 1.3 mg/dL (0.6-1.3); GLUCOSE 155 mg/dL (74-106); PHOSPHORUS 2.8 mg/dL (2.5-4.9); POTASSIUM 3.8 mmol/L (3.5-5.1); SODIUM SERUM 138 mmol/L (136-145); TOTAL PROTEIN, SERUM 4.8 g/dL (6.4-8.2); UREA NITROGEN, BLOOD 26 mg/dL (7-18)
[2017-04-24] MEDS: ESCITALOPRAM OXALATE (10 MG) 10 MG TABLET GT SCH (09:14)
[2017-04-24] MEDS: LACTOBACILLUS RHAMNOSUS GG 1 EACH CAP.SPRINK GT SCH ×2 (09:14→17:20)
[2017-04-24] MEDS: PANTOPRAZOLE 40 MG/PACK PACK GT SCH ×2 (09:14→17:20)
[2017-04-24] MEDS: METOCLOPRAMIDE HCL 10 MG/10 ML UDC GT SCH ×3 (09:14→17:20)
[2017-04-24] MEDS: LEVOTHYROXINE SODIUM 125 MCG TABLET GT SCH (09:14)
[2017-04-24] MEDS: CHLORHEXIDINE GLUCONATE 15 ML UDC MM SCH ×2 (09:14→21:38)
[2017-04-24] MEDS: METOPROLOL TARTRATE 50 MG TABLET GT SCH ×2 (09:15→17:20)
[2017-04-24] MEDS: AMLODIPINE BESYLATE 5 MG TABLET PO SCH (09:15)
[2017-04-24] MEDS: predniSONE 20 MG TABLET GT SCH (09:15)
[2017-04-24 09:40] LABS: NEUTROPHILS % (MANUAL) 63 (42-76)
[2017-04-24 09:41] LABS: LYMPHOCYTES % (MANUAL) 25 % (16-48); MONOCYTES % (MANUAL) 12 % (0-11.0)
[2017-04-24] MEDS: MAGNESIUM HYDROXIDE 30 ML UDC GT PRN (09:42)
[2017-04-24] MEDS: HYDROCODONE/APAP 5/325MG 1 EACH TABLET GT PRN ×3 (09:42→21:47)
[2017-04-24] MEDS: LORAZEPAM 1 MG TABLET GT PRN (12:26)
[2017-04-24] MEDS: INSULIN ASPART NOVOLOG 100 UNIT/ML CARTRIDGE SQ PRN ×3 (12:28→21:44)
[2017-04-24] MEDS: DAKINS QUARTER STRENGTH (0.125%) 480 ML BOTTLE TOP SCH (15:00)
[2017-04-24] MEDS: NA PHOS,M-B/NA PHOS,DI-BA 1 EA ENEMA RC PRN (17:17)
[2017-04-24] MEDS: VIT B CMPLX 3/FA/VIT C/BIOTIN 1 TAB TABLET GT SCH (17:20)
[2017-04-25] VITALS (7 sets, daily range): BP systolic 129–146; BP diastolic 63–85
[2017-04-25] MEDS: LORAZEPAM 1 MG TABLET GT PRN ×2 (00:07→17:00)
[2017-04-25] MEDS: HYDROCODONE/APAP 5/325MG 1 EACH TABLET GT PRN ×3 (06:11→21:00)
[2017-04-25] MEDS: INSULIN DETEMIR 100 UNIT/ML CARTRIDGE SQ SCH (06:24)
[2017-04-25] MEDS: BLOOD SUGAR DIAGNOSTIC 1 EACH STRIP IN SCH ×4 (07:16→22:53)
[2017-04-25 07:31] LABS: GENTAMICIN,TROUGH 1.4 ug/ml (0.2-2.0)
[2017-04-25] MEDS: CHLORHEXIDINE GLUCONATE 15 ML UDC MM SCH ×2 (09:02→20:52)
[2017-04-25] MEDS: LACTOBACILLUS RHAMNOSUS GG 1 EACH CAP.SPRINK GT SCH ×2 (09:02→17:00)
[2017-04-25] MEDS: LEVOTHYROXINE SODIUM 125 MCG TABLET GT SCH (09:03)
[2017-04-25] MEDS: ESCITALOPRAM OXALATE (10 MG) 10 MG TABLET GT SCH (09:03)
[2017-04-25] MEDS: predniSONE 20 MG TABLET GT SCH (09:04)
[2017-04-25] MEDS: PANTOPRAZOLE 40 MG/PACK PACK GT SCH ×2 (09:04→17:00)
[2017-04-25] MEDS: VIT B CMPLX 3/FA/VIT C/BIOTIN 1 TAB TABLET GT SCH (09:04)
[2017-04-25] MEDS: AMLODIPINE BESYLATE 5 MG TABLET PO SCH (09:04)
[2017-04-25] MEDS: METOPROLOL TARTRATE 50 MG TABLET GT SCH ×2 (09:04→16:59)
[2017-04-25] MEDS: METOCLOPRAMIDE HCL 10 MG/10 ML UDC GT SCH ×3 (09:05→16:59)
[2017-04-25] MEDS: DAKINS QUARTER STRENGTH (0.125%) 480 ML BOTTLE TOP SCH (09:13)
[2017-04-25] MEDS: INSULIN ASPART NOVOLOG 100 UNIT/ML CARTRIDGE SQ PRN ×2 (17:33→23:11)
[2017-04-25] MEDS: ZOLPIDEM TARTRATE 5 MG TABLET GT PRN (22:53)
[2017-04-25] MEDS ORDERED: INSULIN REGULAR, HUMAN 100 UNIT/ML 10 ML VIAL ONE (23:04)
[2017-04-25] MEDS ORDERED: SECONDARY IV SET 1 EA INFUS.SET MC ONE (23:42)
[2017-04-25] MEDS: GENTAMICIN 80 MG in IV D5W 50 ML IV PRN (23:48)
[2017-04-26] VITALS (7 sets, daily range): BP systolic 137–166; BP diastolic 83–100
[2017-04-26] MEDS: VANCOMYCIN 500 MG in IV D5W 100 ML IV PRN (00:27)
[2017-04-26] MEDS: LORAZEPAM 1 MG TABLET GT PRN ×2 (05:04→17:05)
[2017-04-26] MEDS: HYDROCODONE/APAP 5/325MG 1 EACH TABLET GT PRN ×5 (05:05→20:04)
[2017-04-26] MEDS: BLOOD SUGAR DIAGNOSTIC 1 EACH STRIP IN SCH ×4 (06:32→22:15)
[2017-04-26] MEDS: INSULIN ASPART NOVOLOG 100 UNIT/ML CARTRIDGE SQ PRN ×2 (06:35→17:08)
[2017-04-26] MEDS: INSULIN DETEMIR 100 UNIT/ML CARTRIDGE SQ SCH (06:35)
[2017-04-26] MEDS: predniSONE 20 MG TABLET GT SCH (08:59)
[2017-04-26] MEDS: METOCLOPRAMIDE HCL 10 MG/10 ML UDC GT SCH ×3 (08:59→16:30)
[2017-04-26] MEDS: CHLORHEXIDINE GLUCONATE 15 ML UDC MM SCH ×2 (08:59→22:13)
[2017-04-26] MEDS: ESCITALOPRAM OXALATE (10 MG) 10 MG TABLET GT SCH (08:59)
[2017-04-26] MEDS: LACTOBACILLUS RHAMNOSUS GG 1 EACH CAP.SPRINK GT SCH ×2 (08:59→16:29)
[2017-04-26] MEDS: AMLODIPINE BESYLATE 5 MG TABLET PO SCH (09:00)
[2017-04-26] MEDS: METOPROLOL TARTRATE 50 MG TABLET GT SCH ×2 (09:00→16:29)
[2017-04-26] MEDS: PANTOPRAZOLE 40 MG/PACK PACK GT SCH ×2 (09:00→16:28)
[2017-04-26] MEDS: DAKINS QUARTER STRENGTH (0.125%) 480 ML BOTTLE TOP SCH (09:00)
[2017-04-26] MEDS: LEVOTHYROXINE SODIUM 125 MCG TABLET GT SCH (09:10)
[2017-04-26] MEDS: VIT B CMPLX 3/FA/VIT C/BIOTIN 1 TAB TABLET GT SCH (17:08)
[2017-04-27] MEDS: HYDROCODONE/APAP 5/325MG 1 EACH TABLET GT PRN ×4 (01:54→21:25)
[2017-04-27 04:00] VITALS: BP 185/91
[2017-04-27] MEDS: LORAZEPAM 1 MG TABLET GT PRN ×3 (05:06→21:41)
[2017-04-27] MEDS: CLONIDINE HCL 0.1 MG TABLET GT PRN (05:48)
[2017-04-27 06:17] VITALS: BP 185/91
[2017-04-27] MEDS: BLOOD SUGAR DIAGNOSTIC 1 EACH STRIP IN SCH ×4 (06:31→21:30)
[2017-04-27] MEDS: INSULIN ASPART NOVOLOG 100 UNIT/ML CARTRIDGE SQ PRN ×2 (06:35→21:39)
[2017-04-27] MEDS: INSULIN DETEMIR 100 UNIT/ML CARTRIDGE SQ SCH (06:35)
[2017-04-27 06:51] LABS: CALCIUM, SERUM 8.1 mg/dL (8.5-10.1); CARBON DIOXIDE 30 mmol/L (21-32); CHLORIDE 100 mmol/L (98-107); CREATININE 1.7 mg/dL (0.6-1.3); GLUCOSE 118 mg/dL (74-106); POTASSIUM 5.3 mmol/L (3.5-5.1); SODIUM SERUM 136 mmol/L (136-145); UREA NITROGEN, BLOOD 29 mg/dL (7-18)
[2017-04-27 07:00] LABS: GENTAMICIN,TROUGH 2.2 ug/ml (0.2-2.0)
[2017-04-27 07:22] LABS: BASOPHILS % (AUTO) 0.1 % (0.0-2.0); EOSINOPHILS % (AUTO) 0.3 % (0.0-6.0); HEMATOCRIT 26 % (33-45); HEMOGLOBIN 8.1 g/dL (11.5-14.8); LYMPHOCYTES # (AUTO) 3.2 /CMM (0.8-4.8); LYMPHOCYTES % (AUTO) 31.9 % (20.0-44.0); MEAN CORPUSCULAR HEMOGLOBIN 30 PG (26.0-33.0); MEAN CORPUSCULAR HGB CONC 32 g/dl (31.0-36.0); MEAN CORPUSCULAR VOLUME 94 fL (82-100); MONOCYTES # (AUTO) 1.2 /CMM (0.1-1.30); MONOCYTES % (AUTO) 11.9 % (2.0-12.0); NEUTROPHILS # (AUTO) 5.6 /CMM (1.8-8.9); NEUTROPHILS % (AUTO) 55.8 % (43.0-81.0); PLATELET COUNT (AUTO) 388 /CMM (150-450); RDW COEFFICIENT OF VARIATION 18.8 (11.5-15.0); RED BLOOD CELL COUNT(AUTO) 2.73 MIL/uL (4.0-5.2)
[2017-04-27 08:00] VITALS: BP 154/97
[2017-04-27] MEDS: predniSONE 20 MG TABLET GT SCH (08:32)
[2017-04-27] MEDS: PANTOPRAZOLE 40 MG/PACK PACK GT SCH ×2 (08:32→17:24)
[2017-04-27] MEDS: METOCLOPRAMIDE HCL 10 MG/10 ML UDC GT SCH ×3 (08:32→17:23)
[2017-04-27] MEDS: ESCITALOPRAM OXALATE (10 MG) 10 MG TABLET GT SCH (08:32)
[2017-04-27] MEDS: AMLODIPINE BESYLATE 5 MG TABLET PO SCH (08:33)
[2017-04-27] MEDS: CHLORHEXIDINE GLUCONATE 15 ML UDC MM SCH ×2 (08:35→21:23)
[2017-04-27] MEDS: METOPROLOL TARTRATE 50 MG TABLET GT SCH ×2 (08:35→17:00)
[2017-04-27] MEDS: LACTOBACILLUS RHAMNOSUS GG 1 EACH CAP.SPRINK GT SCH ×2 (08:35→17:28)
[2017-04-27] MEDS: DAKINS QUARTER STRENGTH (0.125%) 480 ML BOTTLE TOP SCH (08:37)
[2017-04-27] MEDS: LEVOTHYROXINE SODIUM 125 MCG TABLET GT SCH (09:15)
[2017-04-27 16:00] VITALS: BP 101/53
[2017-04-27] MEDS ORDERED: IV SET PRIMARY PUMP SET 1 EA INFUS.SET MC ONE (16:10)
[2017-04-27] MEDS: GENTAMICIN 80 MG in IV D5W 50 ML IV PRN (16:12)
[2017-04-27] MEDS: VIT B CMPLX 3/FA/VIT C/BIOTIN 1 TAB TABLET GT SCH (17:23)
[2017-04-27 20:00] VITALS: BP 133/75
[2017-04-28 04:00] VITALS: BP 147/83
[2017-04-28] MEDS: HYDROCODONE/APAP 5/325MG 1 EACH TABLET GT PRN ×4 (04:43→20:26)
[2017-04-28] MEDS: INSULIN DETEMIR 100 UNIT/ML CARTRIDGE SQ SCH (06:00)
[2017-04-28] MEDS: BLOOD SUGAR DIAGNOSTIC 1 EACH STRIP IN SCH ×4 (06:38→22:25)
[2017-04-28 08:00] VITALS: BP 142/84
[2017-04-28] MEDS: LACTOBACILLUS RHAMNOSUS GG 1 EACH CAP.SPRINK GT SCH ×2 (08:15→17:26)
[2017-04-28] MEDS: ESCITALOPRAM OXALATE (10 MG) 10 MG TABLET GT SCH (08:15)
[2017-04-28] MEDS: PANTOPRAZOLE 40 MG/PACK PACK GT SCH ×2 (08:16→17:27)
[2017-04-28] MEDS: METOCLOPRAMIDE HCL 10 MG/10 ML UDC GT SCH ×3 (08:16→17:27)
[2017-04-28] MEDS: predniSONE 20 MG TABLET GT SCH (08:16)
[2017-04-28] MEDS: AMLODIPINE BESYLATE 5 MG TABLET PO SCH (08:16)
[2017-04-28] MEDS: CHLORHEXIDINE GLUCONATE 15 ML UDC MM SCH ×2 (08:18→20:25)
[2017-04-28] MEDS: DAKINS QUARTER STRENGTH (0.125%) 480 ML BOTTLE TOP SCH (08:18)
[2017-04-28] MEDS: METOPROLOL TARTRATE 50 MG TABLET GT SCH ×2 (08:25→17:26)
[2017-04-28] MEDS: LEVOTHYROXINE SODIUM 125 MCG TABLET GT SCH (08:25)
[2017-04-28 08:47] LABS: CALCIUM, SERUM 8.1 mg/dL (8.5-10.1); CARBON DIOXIDE 30 mmol/L (21-32); CHLORIDE 100 mmol/L (98-107); CREATININE 1.6 mg/dL (0.6-1.3); GLUCOSE 127 mg/dL (74-106); POTASSIUM 4.8 mmol/L (3.5-5.1); SODIUM SERUM 137 mmol/L (136-145); UREA NITROGEN, BLOOD 21 mg/dL (7-18)
[2017-04-28] MEDS: MAGNESIUM HYDROXIDE 30 ML UDC GT PRN (10:53)
[2017-04-28] MEDS ORDERED: VANC500F2 IV (13:19)
[2017-04-28] MEDS ORDERED: LACT1CAP72 GT (13:19)
[2017-04-28] MEDS ORDERED: AMLO5TAB2 PO (13:19)
[2017-04-28] MEDS ORDERED: Renal Novasource GT (13:19)
[2017-04-28] MEDS: LORAZEPAM 1 MG TABLET GT PRN ×2 (13:35→23:52)
[2017-04-28 16:00] VITALS: BP 150/87
[2017-04-28] MEDS: VIT B CMPLX 3/FA/VIT C/BIOTIN 1 TAB TABLET GT SCH (17:29)
[2017-04-28] MEDS: INSULIN ASPART NOVOLOG 100 UNIT/ML CARTRIDGE SQ PRN (17:29)
[2017-04-28 20:00] VITALS: BP 150/88
[2017-04-29 04:00] VITALS: BP 162/88
[2017-04-29] MEDS: HYDROCODONE/APAP 5/325MG 1 EACH TABLET GT PRN ×2 (05:03→12:50)
[2017-04-29] MEDS: INSULIN DETEMIR 100 UNIT/ML CARTRIDGE SQ SCH (05:10)
[2017-04-29] MEDS: BLOOD SUGAR DIAGNOSTIC 1 EACH STRIP IN SCH ×3 (07:30→17:30)
[2017-04-29 08:00] VITALS: BP 187/104
[2017-04-29 08:13] LABS: CALCIUM, SERUM 8.1 mg/dL (8.5-10.1); CARBON DIOXIDE 34 mmol/L (21-32); CHLORIDE 101 mmol/L (98-107); CREATININE 1.2 mg/dL (0.6-1.3); GLUCOSE 117 mg/dL (74-106); POTASSIUM 4.4 mmol/L (3.5-5.1); SODIUM SERUM 137 mmol/L (136-145); UREA NITROGEN, BLOOD 18 mg/dL (7-18)
[2017-04-29] MEDS: AMLODIPINE BESYLATE 5 MG TABLET PO SCH (08:58)
[2017-04-29] MEDS: METOPROLOL TARTRATE 50 MG TABLET GT SCH ×2 (08:59→17:00)
[2017-04-29] MEDS: LEVOTHYROXINE SODIUM 125 MCG TABLET GT SCH (08:59)
[2017-04-29] MEDS: predniSONE 20 MG TABLET GT SCH (09:00)
[2017-04-29] MEDS: LACTOBACILLUS RHAMNOSUS GG 1 EACH CAP.SPRINK GT SCH ×2 (09:01→17:00)
[2017-04-29] MEDS: PANTOPRAZOLE 40 MG/PACK PACK GT SCH ×2 (09:01→17:00)
[2017-04-29] MEDS: ESCITALOPRAM OXALATE (10 MG) 10 MG TABLET GT SCH (09:01)
[2017-04-29] MEDS: METOCLOPRAMIDE HCL 10 MG/10 ML UDC GT SCH ×3 (09:01→17:00)
[2017-04-29] MEDS: CHLORHEXIDINE GLUCONATE 15 ML UDC MM SCH (09:01)
[2017-04-29] MEDS: DAKINS QUARTER STRENGTH (0.125%) 480 ML BOTTLE TOP SCH (09:09)
[2017-04-29 09:30] VITALS: BP 168/82
[2017-04-29] MEDS ORDERED: VANCOMYCIN 1 GM in IV D5W 250 ML IV ONE (11:30)
[2017-04-29] MEDS ORDERED: PLATELET IV SET 1 EA INFUS.SET MC ONE (12:29)
[2017-04-29] MEDS ORDERED: IV SET PRIMARY PUMP SET 1 EA INFUS.SET MC ONE (12:30)
[2017-04-29] MEDS: INSULIN ASPART NOVOLOG 100 UNIT/ML CARTRIDGE SQ PRN (13:01)
[2017-04-29 16:00] VITALS: BP 144/90
[2017-04-29] MEDS: LORAZEPAM 1 MG TABLET GT PRN (17:59)
== END 2017-04-29 18:24 | DRG 173 ==
LOC: ER 17:00 → TELE1 18:07 → TELE 04-16 11:11 → MED 04-18 21:56 → ICU 04-20 15:17 → MEDSG1 04-22 18:10 → TELE-TD 04-22 18:37 → TELE1 04-23 09:01 → MEDSG1 04-26 12:50
PROVIDERS: ADMIT Family Medicine; ATTEND Family Medicine
PROC: 5A1D60Z (ICD-10-PCS; principal; 2017-04-14)
PROC: 06BP0ZZ Excision of Right Saphenous Vein, Open Approach (ICD-10-PCS; 2017-04-20)
PROC: 5A1945Z Respiratory Ventilation, 24-96 Consecutive Hours (ICD-10-PCS; 2017-04-20)
PROC: 03770ZZ Dilation of Right Brachial Artery, Open Approach (ICD-10-PCS; 2017-04-20)
PROC: 03U Upper Arteries, Supplement (ICD-10-PCS; 2017-04-20)
PROC: 02HV33Z Insertion of Infusion Device into Superior Vena Cava, Percutaneous Approach (ICD-10-PCS; 2017-04-21)
PROC: 30233N1 Transfusion of Nonautologous Red Blood Cells into Peripheral Vein, Percutaneous Approach (ICD-10-PCS; 2017-04-21)
PROC: B548ZZA Ultrasonography of Superior Vena Cava, Guidance (ICD-10-PCS; 2017-04-21)
PROC: 0KB70ZZ Excision of Right Upper Arm Muscle, Open Approach (ICD-10-PCS; 2017-04-25)
DX: T82.7XXA Infection and inflammatory reaction due to other cardiac and vascular devices, implants and grafts, initial encounter (principal); J96.21 Acute and chronic respiratory failure with hypoxia; R65.21 Severe sepsis with septic shock; J18.9 Pneumonia, unspecified organism; N18.6 End stage renal disease; Z93.0 Tracheostomy status; I12.0 Hypertensive chronic kidney disease with stage 5 chronic kidney disease or end stage renal disease; T82.41XA Breakdown (mechanical) of vascular dialysis catheter, initial encounter; T82.838A Hemorrhage due to vascular prosthetic devices, implants and grafts, initial encounter; I95.9 Hypotension, unspecified; R13.10 Dysphagia, unspecified; E03.9 Hypothyroidism, unspecified; Z93.1 Gastrostomy status; Z99.2 Dependence on renal dialysis; I25.10 Atherosclerotic heart disease of native coronary artery without angina pectoris; D63.8 Anemia in other chronic diseases classified elsewhere; F32.9 Major depressive disorder, single episode, unspecified; E11.22 Type 2 diabetes mellitus with diabetic chronic kidney disease; E66.9 Obesity, unspecified; E87.5 Hyperkalemia; J44.9 Chronic obstructive pulmonary disease, unspecified; K59.00 Constipation, unspecified; Z79.899 Other long term (current) drug therapy; Y71.2 Prosthetic and other implants, materials and accessory cardiovascular devices associated with adverse incidents; Z95.0 Presence of cardiac pacemaker; E83.9 Disorder of mineral metabolism, unspecified; Y84.9 Medical procedure, unspecified as the cause of abnormal reaction of the patient, or of later complication, without mention of misadventure at the time of the procedure; Y92.129 Unspecified place in nursing home as the place of occurrence of the external cause; I72.8 Aneurysm of other specified arteries; N39.0 Urinary tract infection, site not specified; B96.20 Unspecified Escherichia coli [E. coli] as the cause of diseases classified elsewhere; S41.101A Unspecified open wound of right upper arm, initial encounter; L98.8 Other specified disorders of the skin and subcutaneous tissue; L89.621 Pressure ulcer of left heel, stage 1; L89.611 Pressure ulcer of right heel, stage 1; K21.9 Gastro-esophageal reflux disease without esophagitis; K62.89 Other specified diseases of anus and rectum; Y83.2 Surgical operation with anastomosis, bypass or graft as the cause of abnormal reaction of the patient, or of later complication, without mention of misadventure at the time of the procedure; B95.62 Methicillin resistant Staphylococcus aureus infection as the cause of diseases classified elsewhere
CPT/HCPCS: 31720; 36415; 36569; 36600; 71010-TC; 80048-TC; 80053-TC; 80061-TC; 80170-TC; 80202-TC; 81000-TC; 82803-TC; 82962-TC; 83735-TC; 84100-TC; 84484-TC; 85025-TC; 85610-TC; 85730-TC; 86850-TC; 86921-TC; 87040-TC; 87070-TC; 87081-TC; 87086-TC; 87186-TC; 90935-TC; 92526; 92611-TC; 93307-TC; 94003-TC; 94640-TC; 94760-TC; 94762-TC; 94799-TC; A4216; A4606; A4623; A6253; A6402; A6403; A7526; C1751; C1769; J0885; J1580; J1644; J1815; J1956; J2370; J2704; J2997; J3010; J3370; J3490; J7030; J7050; J7060; J8597; P9016-BL; P9047; Z7610

== ENCOUNTER 2017-05-11 14:29 | Inpatient (IN) | payer MEDICAID, MEDICARE ==
[~2017-05-11] VITALS: Ht 162.6 cm; Wt 86.2 kg
[~2017-05-11 14:29] MED LIST: ACET325T53 GT; AMLO5TAB2 PO; CHLO473M3 MM; CLON0.1T GT; DEXT15DR6 EACHEYE; ESCI10TA GT; HYDR-552 GT; INSU100V27 SQ; INSU3INS6 SQ; LACT1CAP72 GT; LANS30CA56 GT; LEVO125T8 GT; LORA1TAB GT; MELA3TAB GT; METO50TA3 GT; METO5SOL20 GT; PRED20TA GT; Renal Novasource GT; VANC500F2 IV; VIT1TABL46 GT
--- NOTE | 2017-05-11 14:40 | NUR ---
JURGEN FROM [facility] DUE TO CHEST PAIN 20 MINS CUSTOMER CARE REPRESENTATIVE, 04/02, RADIATING TO LEFT ARM. PATIENT IS AAO3 WITH CONFUSION. NOPTED WITH HD CATH ON RCW-- PATIENT IS SUPPOSED TO GO TO HD BUT WAS SENT TO ED DUE TO COMPLAINT ABOVE. PIV ACCESS NOTED ON VINNIE. SKIN IS WARM TO TOUCH AND NON DIAPHORETIC. PATIENT IS AFEBRILE. VSS
--- NOTE | 2017-05-11 14:59 | NUR ---
BOLT LOADER AT FOR BLOOD DRAW
[2017-05-11] MEDS ORDERED: ASPIRIN 81 MG TAB.CHEW PO ONE (15:00)
[2017-05-11] MEDS ORDERED: ASPIRIN 81 MG TAB.CHEW ONE (15:03)
[2017-05-11] MEDS ORDERED: ONDANSETRON HCL/PF 4 MG/2 ML VIAL ONE (15:12)
[2017-05-11] MEDS ORDERED: MORPHINE SULFATE INJ 4 MG/ML DISP.SYRIN ONE (15:12)
[2017-05-11 15:21] LABS: CALCIUM, SERUM 8.9 mg/dL (8.5-10.1); CARBON DIOXIDE 26 mmol/L (21-32); CHLORIDE 103 mmol/L (98-107); CREATININE 1.7 mg/dL (0.6-1.3); GLUCOSE 262 mg/dL (74-106); SODIUM SERUM 137 mmol/L (136-145); UREA NITROGEN, BLOOD 48 mg/dL (7-18)
[2017-05-11 15:27] LABS: BASOPHILS # (AUTO) 0.1 /CMM (0.0-0.2); BASOPHILS % (AUTO) 0.5 % (0.0-2.0); EOSINOPHILS # (AUTO) 0.1 /CMM (0.0-0.7); EOSINOPHILS % (AUTO) 0.6 % (0.0-6.0); HEMATOCRIT 33 % (33-45); HEMOGLOBIN 10.3 g/dL (11.5-14.8); LYMPHOCYTES # (AUTO) 1.4 /CMM (0.8-4.8); LYMPHOCYTES % (AUTO) 13.9 % (20.0-44.0); MEAN CORPUSCULAR HEMOGLOBIN 29 PG (26.0-33.0); MEAN CORPUSCULAR HGB CONC 31 g/dl (31.0-36.0); MEAN CORPUSCULAR VOLUME 95 fL (82-100); MONOCYTES # (AUTO) 0.2 /CMM (0.1-1.30); MONOCYTES % (AUTO) 1.7 % (2.0-12.0); NEUTROPHILS # (AUTO) 8.4 /CMM (1.8-8.9); NEUTROPHILS % (AUTO) 83.3 % (43.0-81.0); PLATELET COUNT (AUTO) 261 /CMM (150-450); RDW COEFFICIENT OF VARIATION 18.4 (11.5-15.0); RED BLOOD CELL COUNT(AUTO) 3.52 MIL/uL (4.0-5.2); WHITE BLOOD COUNT (AUTO) 10.2 K/uL (4.3-11.0)
[2017-05-11] MEDS ORDERED: ONDANSETRON HCL/PF 4 MG/2 ML VIAL IV ONE (15:30)
[2017-05-11] MEDS ORDERED: MORPHINE SULFATE INJ 2 MG/ML DISP.SYRIN IV ONE (15:30)
[2017-05-11 15:31] LABS: INR 0.9 (0.87-1.13); PROTHROMBIN TIME 9.3 SECS (9.5-12.7); TROPONIN I 0.022 ng/mL (0.00-0.056)
--- NOTE | 2017-05-11 15:44 | NUR ---
TELE 306-8
--- NOTE | 2017-05-11 15:57 | NUR ---
PT NOTED TO BE HYPERTENSIVE. C/O SEVERE PAIN. MD AND PRIMARY RN VLAD NOTIFIED.
--- NOTE | 2017-05-11 16:03 | NUR ---
RECHECK BLOOD PRESSURE 157/87 NOTIFIED PT STILL IN PAIN
[2017-05-11] MEDS ORDERED: NITROGLYCERIN 0.4 MG/TAB BOTTLE ONE (16:12)
--- NOTE | 2017-05-11 16:24 | NUR ---
GAVE REPORT TO LIZZY JACQUESLOAN AND CREDIT MANAGER DX CHEST PAIN. TRANSFER VIA ACLS PROTOCOL. DR NICOLAS PENALOZA ADMITTING . CONTACT ISO MRSA WOUND
[2017-05-11] MEDS ORDERED: NITROGLYCERIN 0.4 MG/TAB BOTTLE SL PRN (16:30)
--- NOTE | 2017-05-11 16:32 | NUR ---
NIDIA PAGED, NICOLAS PENALOZA SHIPPING AND RECEIVING OPERATOR
[2017-05-11 17:30] VITALS: BP 130/85
--- NOTE | 2017-05-11 17:30 | NUR ---
CERTIFIED INDUSTRIAL HYGIENIST NOTES RECEIVED PATIENT FROM ER VIA LC. PATIENT ALERT AND ORIENTED X3. PATIENT HAS A TRACH ON AEROSOL 5LPM O2. TELEMETRY AFIB HR 85. PATIENT HAS PICC LINE ON LEFT UPPER ARM, RIGHT CHEST WALL HD CATH, GTUBE IN PLACE. NO COMPLAINS OF PAIN OR DISCOMFORT AT THIS TIME. KEPT PATIENT SAFE, BED IN LOWEST POSITION, HOB ELEVATED, CALL LIGHT WITHIN REACH. WILL CONTINUE TO MONITOR ACCORDINGLY.
[2017-05-11] MEDS ORDERED: DEXT15DR6 EACHEYE (17:44)
[2017-05-11] MEDS ORDERED: DOCU100T2 GT (17:44)
[2017-05-11] MEDS ORDERED: NUTR100037 GT (17:50)
[2017-05-11] MEDS ORDERED: LEVA0.6320 NEB (17:50)
[2017-05-11 17:58] LABS: LYMPHOCYTES % (MANUAL) 18 % (16-48); MONOCYTES % (MANUAL) 2 % (0-11.0); NEUTROPHILS % (MANUAL) 80 (42-76)
[2017-05-11] MEDS ORDERED: LORA2TAB GT (18:06)
--- NOTE | 2017-05-11 19:00 | NUR ---
CYLINDER HONER NOTES PATIENT IN BED RESTING. NO CHANGE OF CONDITION. NO ACUTE DISTRESS, NO SOB NOTED. ALL NEEDS ATTENDED AND PROVIDED. KEPT A SAFE ENVIRONMENT. ENDORSED TO NIGHT RN FOR CONTINUITY OF CARE.
[2017-05-11] MEDS ORDERED: ACETAMINOPHEN 325 MG TABLET PO PRN (19:30)
[2017-05-11] MEDS ORDERED: ONDANSETRON HCL/PF 4 MG/2 ML VIAL IVP PRN (19:30)
[2017-05-11] MEDS ORDERED: DEXTROSE 50%-WATER 50 ML DISP.SYRIN IV PRN (19:30)
[2017-05-11] MEDS ORDERED: CLONIDINE HCL 0.1 MG TABLET GT PRN (19:30)
[2017-05-11] MEDS ORDERED: HYDROCODONE/APAP 5/325MG 1 EACH TABLET GT PRN (19:30)
[2017-05-11] MEDS ORDERED: Z GUARD REMEDY 2 OZ OINT TP PRN (19:30)
--- NOTE | 2017-05-11 19:30 | NUR ---
rn note; RECEIVEDPT IN BED AWAKE AND ALERT, BREATHING EVENLY. TRACH IN PLACE. NO SOB. NAD. NO C/O PAIN OR DISCOMFORT. DENIED CP. REQUESTING FOOD, TEA AND SOMETHING TO DRINK. WILL F/U W. DIET ORDERS. HEART MONITOR IN PLACE. NEEDS ATTENDED. ASSISTED W/ ADLS. CALL LIGHT WITHIN REACH,. WILL CONT TO MONITOR.
[2017-05-11 20:00] VITALS: BP 139/85
[2017-05-11] MEDS ORDERED: FEE PK DOSING 1 MIN EA MC ONE (20:16)
[2017-05-11] MEDS ORDERED: VANCOMYCIN 1 GM in IV D5W 250 ML IV ONE (21:00)
[2017-05-11] MEDS: RENAL NOVASOURCE 1,000 ML BOTTLE GT PRN (21:44)
[2017-05-11] MEDS: CHLORHEXIDINE GLUCONATE 15 ML UDC MM SCH (21:44)
[2017-05-11] MEDS: METOCLOPRAMIDE HCL 5 MG/5 ML UDC PO SCH (21:45)
--- NOTE | 2017-05-11 22:00 | NUR ---
ELEMENTARY SCHOOL TEACHER OPENING NOTES: RECEIVED PT FROM GEORGIE REYES. PT IN BED AWAKE AND A/O X 4, BREATHING EVENLY. TRACH IN PLACE. NO SOB. NO C/O PAIN OR DISCOMFORT. DENIED CP. HEART MONITOR IN PLACE. NEEDS ATTENDED. PT HAS VINNIE PICC ILJOSE AND ALSO HAS R CHEST WALL ACCESS FOR HD. ASSISTED W/ ADLS. CALL LIGHT WITHIN REACH. WILL CONTINUE TO MONITOR.
[2017-05-11] MEDS: INSULIN DETEMIR 100 UNIT/ML CARTRIDGE SQ SCH (22:48)
--- NOTE | 2017-05-11 22:48 | NUR ---
HANDLE AND VENT MACHINE OPERATOR NOTES: BLOOD SUGAR WAS 160. PT RECEIVED 10 UNITS OF LEVEMIR. PT IS ALSO ON NOVASOURCE 50 ML/HR FEEDING VIA G TUBE. WILL CONTINUE TO MONITOR PT.
[2017-05-11] MEDS: LORAZEPAM 1 MG TABLET GT PRN (22:52)
--- NOTE | 2017-05-11 22:52 | NUR ---
CORONARY CARE UNIT NURSE NOTES: PT REQUESTED FOR HER ATIVAN 2MG. WILL CONTINUE TO MONITOR PT.
[2017-05-11] MEDS: BLOOD SUGAR DIAGNOSTIC 1 EACH STRIP IN SCH (23:57)
[2017-05-12] VITALS (8 sets, daily range): BP systolic 126–153; BP diastolic 8–90
[2017-05-12] MEDS: INSULIN REGULAR, HUMAN 100 UNIT/ML 3 ML VIAL SQ PRN ×4 (00:09→23:06)
--- NOTE | 2017-05-12 00:09 | NUR ---
BECK TENDER NOTES: PT'S BLOOD SUGAR WAS 158. PT RECEIVED 2 UNITS OF INSULIN. PT IS ON NOVASOURCE FEEDING VIA G TUBE 50ML/HR. WILL CONTINUE TO MONITOR PT.
[2017-05-12] MEDS: METOCLOPRAMIDE HCL 5 MG/5 ML UDC PO SCH ×3 (03:33→21:20)
[2017-05-12] MEDS: BLOOD SUGAR DIAGNOSTIC 1 EACH STRIP IN SCH ×4 (05:43→23:02)
--- NOTE | 2017-05-12 06:00 | NUR ---
AMPOULE WASHING MACHINE OPERATOR NOTES: BLOOD SUGAR WAS 108. NO COVERAGE WAS GIVEN. PT IS ON NOVASOURCE 50ML/HR VIA G TUBE. WILL CONTINUE TO MONITOR PT.
--- NOTE | 2017-05-12 07:35 | NUR ---
SENIOR FINANCIAL REPORTING ACCOUNTANT CLOSING NOTES: ALL NEEDS WERE ATTENDED AND ANTICIPATED FOR. PT IS AWAKE AND A/O X 4, BREATHING EVENLY. TRACH IN PLACE.PT HAS SHILEY #6 DCT. PT IS ON TELE MONITOR AND IS A FIB CONTROLLED 79 WITH V PACING. NO SOB. NO C/O PAIN OR DISCOMFORT. DENIED CP. HEART MONITOR IN PLACE. PT HAS VINNIE PICC LINE AND IS PATENT AND INTACT. PT ALSO HAS R CHEST WALL PERMA-CATH FOR HD. ASSISTED W/ ADLS. CALL LIGHT WITHIN REACH. BED KEPT IN LOW, LOCKED POSITION, AND SIDE RAILS X 2 UP. ENDORSED TO AM NURSE FOR EDWARD.
[2017-05-12 07:37] LABS: BASOPHILS % (AUTO) 0.1 % (0.0-2.0); EOSINOPHILS # (AUTO) 0.1 /CMM (0.0-0.7); EOSINOPHILS % (AUTO) 1.6 % (0.0-6.0); HEMATOCRIT 33 % (33-45); HEMOGLOBIN 10.4 g/dL (11.5-14.8); LYMPHOCYTES # (AUTO) 2.8 /CMM (0.8-4.8); LYMPHOCYTES % (AUTO) 31.2 % (20.0-44.0); MEAN CORPUSCULAR HEMOGLOBIN 31 PG (26.0-33.0); MEAN CORPUSCULAR HGB CONC 32 g/dl (31.0-36.0); MEAN CORPUSCULAR VOLUME 96 fL (82-100); MONOCYTES # (AUTO) 1.1 /CMM (0.1-1.30); MONOCYTES % (AUTO) 12.5 % (2.0-12.0); NEUTROPHILS # (AUTO) 4.9 /CMM (1.8-8.9); NEUTROPHILS % (AUTO) 54.6 % (43.0-81.0); PLATELET COUNT (AUTO) 263 /CMM (150-450); RDW COEFFICIENT OF VARIATION 20.1 (11.5-15.0); WHITE BLOOD COUNT (AUTO) 8.9 K/uL (4.3-11.0)
--- NOTE | 2017-05-12 07:40 | NUR ---
PAIN MANAGEMENT SPECIALIST OPENING NOTES RECEIVED PATIENT IN BED RESTING, AROUSES EASILY. ALERT AND ORIENTED X 3. NO ACUTE DISTRESS, NO SHORTNESS OF BREATH NOTED. TRACH IN PLACE. TELEMETRY AFIB CONTROLLED 79 WITH V PACING. PICC LINE INTACT AND PATENT. GTUBE FEEDING RUNNING AT 50ML/HR. TRACH VALVE ON BED SIDE. KEPT PATIENT SAFE AND COMFORTABLE. BED IN LOW POSITION, HOB ELEVATED, SIDERAILS UP X2. CALL LIGHT WITHIN REACH. WILL CONTINUE TO MONITOR ACCORDINGLY.
[2017-05-12 08:06] LABS: ALANINE AMINOTRANSFERASE 11 U/L (12-78); ALKALINE PHOSPHATASE 81 U/L (46-116); ASPARTATE AMINOTRANSFERASE 20 U/L (15-37); BILIRUBIN,TOTAL 0.2 mg/dL (0.2-1.0); CALCIUM, SERUM 8.6 mg/dL (8.5-10.1); CARBON DIOXIDE 26 mmol/L (21-32); CHLORIDE 103 mmol/L (98-107); CREATININE 1.7 mg/dL (0.6-1.3); GLUCOSE 121 mg/dL (74-106); MAGNESIUM 2.3 mg/dL (1.8-2.4); PHOSPHORUS 3.1 mg/dL (2.5-4.9); POTASSIUM 3.4 mmol/L (3.5-5.1); SODIUM SERUM 139 mmol/L (136-145); TOTAL PROTEIN, SERUM 6.2 g/dL (6.4-8.2); UREA NITROGEN, BLOOD 55 mg/dL (7-18)
[2017-05-12 08:09] LABS: CHOLESTEROL 189 mg/dL (<200); HDL CHOLESTEROL 81 mg/dL (40-60); LDL 85 mg/dL (0-99); THYROID STIMULATING HORMONE 0.386 uIU/mL (0.358-3.74); TRIGLYCERIDES 165 mg/dL (30-150)
[2017-05-12] MEDS: AMLODIPINE BESYLATE 5 MG TABLET PO SCH (09:17)
[2017-05-12] MEDS: predniSONE 20 MG TABLET GT SCH (09:17)
[2017-05-12] MEDS: LACTOBACILLUS RHAMNOSUS GG 1 EACH CAP.SPRINK GT SCH ×2 (09:17→18:03)
[2017-05-12] MEDS: ESCITALOPRAM OXALATE (10 MG) 10 MG TABLET GT SCH (09:17)
[2017-05-12] MEDS: LEVOTHYROXINE SODIUM 125 MCG TABLET GT SCH (09:17)
[2017-05-12] MEDS: METOPROLOL TARTRATE 50 MG TABLET GT SCH ×2 (09:17→18:03)
[2017-05-12] MEDS: ASPIRIN EC 81 MG TABLET.DR PO SCH (09:17)
[2017-05-12] MEDS: VIT B CMPLX 3/FA/VIT C/BIOTIN 1 TAB TABLET GT SCH (09:18)
[2017-05-12] MEDS: CHLORHEXIDINE GLUCONATE 15 ML UDC MM SCH ×2 (09:23→21:18)
[2017-05-12] MEDS ORDERED: POTASSIUM CHLORIDE 20 MEQ POWDER PACKET GT ONE (12:00)
[2017-05-12] MEDS: APIXABAN 2.5 MG TABLET PO SCH ×2 (13:02→21:18)
--- NOTE | 2017-05-12 18:50 | NUR ---
RN CLOSING NOTES PATIENT IN BED RESTING. NO CHANGE OF CONDITION. NO ACUTE DISTRESS, NO SOB NOTED. ALL NEEDS ATTENDED AND PROVIDED. KEPT PATIENT CLEAN AND PROVIDED A SAFE ENVIRONMENT. BED IN LOW POSITION, SIDERAILS UP X 2, HOB ELEVATED, CALL LIGHT WITHIN REACH. ENDORSED TO INDEPENDENT PRODUCER RN FOR CONTINUITY OF CARE.
--- NOTE | 2017-05-12 19:00 | NUR ---
PHYSICIAN SPECIALIST NOTES PT RECEIVED IN BED, NO S/S OF RESPIRATORY DISTRESS OR SOB. IV SITE INTACT WITH NO S/S OF INFILTRATION NOTED. SAFE ENVIRONMENT PROVIDED FREE OF CLUTTERS .BED IN LOCKED, LOW POSITION. CALL LIGHT WITHIN EASY REACH. WILL CONTINUE TO MONITOR.
[2017-05-12] MEDS ORDERED: VANCOMYCIN 500 MG in IV D5W 100 ML IV PRN (20:30)
[2017-05-12] MEDS: LORAZEPAM 1 MG TABLET GT PRN (21:19)
[2017-05-12] MEDS: RENAL NOVASOURCE 1,000 ML BOTTLE GT PRN (21:43)
[2017-05-12] MEDS: INSULIN DETEMIR 100 UNIT/ML CARTRIDGE SQ SCH (23:04)
[2017-05-13] VITALS: BP 133/77
[2017-05-13] MEDS: HYDROCODONE/APAP 5/325MG 1 EACH TABLET GT PRN ×2 (03:41→10:02)
[2017-05-13] MEDS: METOCLOPRAMIDE HCL 5 MG/5 ML UDC PO SCH ×2 (03:42→15:01)
[2017-05-13 04:00] VITALS: BP 168/85
[2017-05-13] MEDS: BLOOD SUGAR DIAGNOSTIC 1 EACH STRIP IN SCH ×2 (05:10→12:52)
[2017-05-13] MEDS: INSULIN REGULAR, HUMAN 100 UNIT/ML 3 ML VIAL SQ PRN ×2 (05:15→12:54)
--- NOTE | 2017-05-13 06:32 | NUR ---
BRIDGE PAINTER HELPER CLOSING NOTES PATIENT COMFORTABLY ASLEEP AND EASILY AWAKEN, HEAD OF BED ELEVATED FOR BETTER LUNG EXPANSION. IV SITE NO S/S OF INFILTRATED, PATIENT DENIES PAIN AT THIS TIME. SUCTIONED PATIENT PRN. TOLERATING COOL AEROSOL VIA TRACH. OFFLOAD AT ALL TIMES. GT NOVASOURCE 50CC INFUSING AND TOLERATED WELL. RESPIRATIONS EVEN AND UNLABORED. NO S/S OF ACUTE DISTRESS, NO SOB, AFEBRILE, ALL NURSING CARE NEEDS PROVIDED AND RENDERED, KEPT CLEAN AND DRY AND COMFORTABLE, GOOD SKIN CARE PROVIDED. ALL DUE MEDS WAS GIVEN TOLERATED. FREQUENT VISUAL CHECK DONE FOR SAFETY EVERY 2 HOURS. REPOSITIONED EVERY 2 HOURS FOR COMFORT AND SKIN MGT. SAFE HAZARD FREE ENVIRONMENT PROVIDED. CALL LIGHT WITHIN EASY TO REACH, ON LOW BED AT ALL TIMES TO ENSURE SAFETY, WILL ENDORSE TO THE NEXT SHIFT CONTINUE PLAN OF CARE. NO S/S OF HYPO/HYPERGLYCEMIA. Addendum: 05/13/17 at 0634 by CECIL CAMEJO RN ADDENDUM: PATIENT ON TELE MONITOR 87'S A-FIB AND CONTROLLED V PACING AWARE.
[2017-05-13 06:42] LABS: CALCIUM, SERUM 8.7 mg/dL (8.5-10.1); CARBON DIOXIDE 28 mmol/L (21-32); CHLORIDE 102 mmol/L (98-107); CREATININE 1.9 mg/dL (0.6-1.3); GLUCOSE 192 mg/dL (74-106); POTASSIUM 3.7 mmol/L (3.5-5.1); SODIUM SERUM 138 mmol/L (136-145); UREA NITROGEN, BLOOD 60 mg/dL (7-18)
--- NOTE | 2017-05-13 07:30 | NUR ---
INSPECTOR RETURNED MATERIALS NOTES RECEIVED REPORT WITH PATIENT RESTING COMFORTABLY IN BED. NO S/S OF SOB OR DISTRESS NOTED. PATIENT ON COOL AEROSOL VIA TRACH. TOLERATING WELL. PATIENT ON TELE MONITOR: HR AT A. FIB. STABLE. PICC LINE IS PATENT AND INTACT. G-TUBE PATENT AND INTACT:NOVASOURCE RUNNING AT 50ML/HR, TOLERATING WELL. NO DISTRESS. BED IS IN THE LOWEST, LOCKED POSITION. CALL LIGHT IS WITHIN REACH. WILL CONTINUE TO MONITOR THROUGHOUT SHIFT. Addendum: 05/13/17 at 1138 by DANIELA SMITH RN PT A/OX4. BREATHING IS EVEN AND UNLABORED.
[2017-05-13 08:00] VITALS: BP 158/93
[2017-05-13] MEDS: APIXABAN 2.5 MG TABLET PO SCH (09:00)
[2017-05-13] MEDS: predniSONE 20 MG TABLET GT SCH (10:02)
[2017-05-13] MEDS: ASPIRIN EC 81 MG TABLET.DR PO SCH (10:02)
[2017-05-13] MEDS: CHLORHEXIDINE GLUCONATE 15 ML UDC MM SCH (10:02)
[2017-05-13] MEDS: VIT B CMPLX 3/FA/VIT C/BIOTIN 1 TAB TABLET GT SCH (10:02)
[2017-05-13] MEDS: LACTOBACILLUS RHAMNOSUS GG 1 EACH CAP.SPRINK GT SCH (10:03)
[2017-05-13] MEDS: ESCITALOPRAM OXALATE (10 MG) 10 MG TABLET GT SCH (10:03)
[2017-05-13] MEDS: METOPROLOL TARTRATE 50 MG TABLET GT SCH (10:03)
[2017-05-13] MEDS: AMLODIPINE BESYLATE 5 MG TABLET PO SCH (10:04)
[2017-05-13] MEDS: LEVOTHYROXINE SODIUM 125 MCG TABLET GT SCH (10:04)
--- NOTE | 2017-05-13 11:15 | NUR ---
MS RN NOTES PT COMPLAINING OF CHEST PAIN. MD MADE AWARE. WILL CONTINUE TO MONITOR.
[2017-05-13] MEDS ORDERED: LORAZEPAM INJ 2 MG/ML VIAL IV ONE (12:00)
[2017-05-13] MEDS ORDERED: APIX2.5T PO (15:32)
[2017-05-13] MEDS ORDERED: ASPI-991 PO (15:32)
[2017-05-13] MEDS ORDERED: PANT40TA2 GT (15:32)
[2017-05-13 16:00] VITALS: BP 150/93
[2017-05-13] MEDS ORDERED: MUPIROCIN OINT 2% 22 GM TUBE SCH (16:00)
--- NOTE | 2017-05-13 17:45 | NUR ---
MS RN NOTES CALLED SNF AND GAVE REPORT TO GEORGIE RAMIREZ.
--- NOTE | 2017-05-13 18:30 | NUR ---
MS RN NOTES PATIENT HAS BEEN TRANSFERRED IN STABLE CONDITION TO [facility]. NO S/S OF SOB OR DISTRESS NOTED. PICC LINE REMAINS INTACT TO CONTINUE IV ANTIBIOTICS IN SNF. PATIENT CONNECTED TO 5L O2 BEFORE TRANSFER, ALL BELONGINGS HAVE BEEN ACCOUNTED FOR. MD AWARE OF ALL ABNORMAL LABS. ALL PATIENT NEEDS HAVE BEEN MET THROUGHOUT THE DAY. PATIENT DENIES PAIN OR DISTRESS. PATIENT IS ABLE TO COMMUNICATE AND IS A/OX4. ALL DISCHARGE INSTRUCTIONS HAVE BEEN PROVIDED TO THE PATIENT. PATIENT WAS ABLE TO ACKNOWLEDGE THAT SHE UNDERSTOOD ALL INSTRUCTIONS. REPORT WAS GIVEN TO EMT STAFF. PATIENT WAS SAFELY TRANSFERRED TO [facility] AND TRANSFERRED TO SNF.
== END 2017-05-13 18:49 | DRG 241 ==
LOC: ER 14:30 → TELE 16:04 → MED 05-13 10:58
PROVIDERS: ADMIT Nurse Practitioner Acute Care; ATTEND Nurse Practitioner Acute Care
PROC: 5A1D00Z (ICD-10-PCS; principal; 2017-05-13)
DX: K29.70 Gastritis, unspecified, without bleeding (principal); J96.10 Chronic respiratory failure, unspecified whether with hypoxia or hypercapnia; N18.6 End stage renal disease; Z93.0 Tracheostomy status; I13.11 Hypertensive heart and chronic kidney disease without heart failure, with stage 5 chronic kidney disease, or end stage renal disease; E11.22 Type 2 diabetes mellitus with diabetic chronic kidney disease; I48.91 Unspecified atrial fibrillation; K20.9 Esophagitis, unspecified; I25.10 Atherosclerotic heart disease of native coronary artery without angina pectoris; E03.9 Hypothyroidism, unspecified; F41.9 Anxiety disorder, unspecified; J44.9 Chronic obstructive pulmonary disease, unspecified; K21.9 Gastro-esophageal reflux disease without esophagitis; Z99.2 Dependence on renal dialysis; Z95.0 Presence of cardiac pacemaker; E87.6 Hypokalemia; L89.621 Pressure ulcer of left heel, stage 1; L89.611 Pressure ulcer of right heel, stage 1; L98.8 Other specified disorders of the skin and subcutaneous tissue; S40.022A Contusion of left upper arm, initial encounter; X58.XXXA Exposure to other specified factors, initial encounter; Y93.9 Activity, unspecified; Y92.129 Unspecified place in nursing home as the place of occurrence of the external cause; F32.9 Major depressive disorder, single episode, unspecified; Z79.52 Long term (current) use of systemic steroids; S91.001A Unspecified open wound, right ankle, initial encounter
CPT/HCPCS: 31720; 36415; 71010-TC; 80048-TC; 80053-TC; 80061-TC; 80202-TC; 82962-TC; 83735-TC; 84100-TC; 84443-TC; 84484-TC; 85025-TC; 85730-TC; 87081-TC; A4606; A6402; J1815; J2060; J2270; J2405; J3370; J7050; J7060; J8597; Z7610

== ENCOUNTER 2017-05-18 08:55 | Inpatient (IN) | payer MEDICAID, MEDICARE ==
[~2017-05-18] VITALS: Ht 152.4 cm; Wt 86.2 kg
[~2017-05-18 08:55] MED LIST changes: +APIX2.5T PO; +ASPI-991 PO; +DOCU100T2 GT; -INSU100V27 SQ; -LANS30CA56 GT; +LEVA0.6320 NEB; -LORA1TAB GT; +LORA2TAB GT; +NUTR100037 GT; +PANT40TA2 GT; -Renal Novasource GT
--- NOTE | 2017-05-18 09:02 | NUR ---
JURGEN FROM [facility] CHEST PAIN, PRESSURE LIKE, NON RADIATING, 06/02, STARTED 0300 THIS MORNING. NO SOB NOTED. PATIENT WITH TRACHEOSTOMY ON COOL AEROSOL SATING WELL. PATIENT IS AFEBRILE. VSS. GOWNED AND PLACED PT ON TELE MONITOR
--- NOTE | 2017-05-18 09:04 | NUR ---
EKG ON PROGRESS
--- NOTE | 2017-05-18 09:05 | NUR ---
RAY AT BEDSIDE
--- NOTE | 2017-05-18 09:08 | NUR ---
HD CATH NOTED ON RCW. PICC LINE TRIPLE LUMEN ALSO NOTED ON VINNIE
[2017-05-18] MEDS ORDERED: ONDANSETRON HCL/PF 4 MG/2 ML VIAL ONE (09:13)
[2017-05-18] MEDS ORDERED: HYDROMORPHONE 1 MG/1 ML DISP.SYRIN ONE (09:13)
--- NOTE | 2017-05-18 09:18 | NUR ---
CALLED RT FOR BREATHING TREATMENT
--- NOTE | 2017-05-18 09:24 | NUR ---
PICC LINE DRESSING CHANGED. REMAINS WITH NO BLOOD RETURN
[2017-05-18] MEDS ORDERED: ALBUTEROL FS 2.5 MG/0.5 ML VIAL.NEB ONE (09:27)
[2017-05-18] MEDS ORDERED: IPRATROPIUM NEB FS 0.5 MG/2.5 ML AMPUL.NEB ONE (09:27)
[2017-05-18] MEDS ORDERED: AMMONIA NASAL INHALATION 1 EA PACK NAS ONE (09:29)
[2017-05-18] MEDS ORDERED: IPRATROPIUM NEB FS 0.5 MG/2.5 ML AMPUL.NEB NEB ONE (09:30)
[2017-05-18] MEDS ORDERED: HYDROMORPHONE 1 MG/1 ML DISP.SYRIN IV ONE (09:30)
[2017-05-18] MEDS ORDERED: ONDANSETRON HCL/PF - ER 4 MG/2 ML VIAL IV ONE (09:30)
[2017-05-18] MEDS ORDERED: ALBUTEROL FS 2.5 MG/3 ML VIAL.NEB CONTNEB ONE (09:30)
--- NOTE | 2017-05-18 09:36 | NUR ---
BREATHING TREATMENT IN PROGRESS
[2017-05-18 09:42] LABS: BASOPHILS % (AUTO) 0.1 % (0.0-2.0); EOSINOPHILS # (AUTO) 0.1 /CMM (0.0-0.7); EOSINOPHILS % (AUTO) 0.7 % (0.0-6.0); HEMATOCRIT 37 % (33-45); HEMOGLOBIN 11.6 g/dL (11.5-14.8); LYMPHOCYTES # (AUTO) 3.1 /CMM (0.8-4.8); LYMPHOCYTES % (AUTO) 29.8 % (20.0-44.0); MEAN CORPUSCULAR HEMOGLOBIN 30 PG (26.0-33.0); MEAN CORPUSCULAR HGB CONC 31 g/dl (31.0-36.0); MEAN CORPUSCULAR VOLUME 96 fL (82-100); MONOCYTES # (AUTO) 0.9 /CMM (0.1-1.30); MONOCYTES % (AUTO) 8.5 % (2.0-12.0); NEUTROPHILS # (AUTO) 6.4 /CMM (1.8-8.9); NEUTROPHILS % (AUTO) 60.9 % (43.0-81.0); PLATELET COUNT (AUTO) 271 /CMM (150-450); RDW COEFFICIENT OF VARIATION 18.5 (11.5-15.0); RED BLOOD CELL COUNT(AUTO) 3.92 MIL/uL (4.0-5.2); WHITE BLOOD COUNT (AUTO) 10.5 K/uL (4.3-11.0)
[2017-05-18 09:57] LABS: INR 0.89 (0.87-1.13); PROTHROMBIN TIME 9.4 SECS (9.5-12.7)
[2017-05-18 10:35] LABS: CHLORIDE 102 mmol/L (98-107); POTASSIUM 4.9 mmol/L (3.5-5.1); SODIUM SERUM 137 mmol/L (136-145)
[2017-05-18 10:40] LABS: CALCIUM, SERUM 8.9 mg/dL (8.5-10.1); CARBON DIOXIDE 26 mmol/L (21-32); CREATININE 1.9 mg/dL (0.6-1.3); GLUCOSE 174 mg/dL (74-106); UREA NITROGEN, BLOOD 60 mg/dL (7-18)
[2017-05-18 10:58] LABS: ALANINE AMINOTRANSFERASE 20 U/L (12-78); ALBUMIN 3.3 g/dL (3.4-5.0); ALKALINE PHOSPHATASE 86 U/L (46-116); ASPARTATE AMINOTRANSFERASE 13 U/L (15-37); BILIRUBIN,DIRECT 0.1 mg/dL (0.0-0.2); BILIRUBIN,TOTAL 0.3 mg/dL (0.2-1.0); TOTAL PROTEIN, SERUM 6.3 g/dL (6.4-8.2); TROPONIN I 0.022 ng/mL (0.00-0.056)
--- NOTE | 2017-05-18 11:10 | NUR ---
[facility] PAGED, PURCHASING ADMINISTRATIVE ASSISTANT
--- NOTE | 2017-05-18 11:13 | NUR ---
CALLED NURSING SUP. FOR TELE BED
--- NOTE | 2017-05-18 11:45 | NUR ---
DR. WALLIS AT BEDSIDE
--- NOTE | 2017-05-18 11:52 | NUR ---
REPORT GIVEN TO GEORGIE GRANADOS FOR CONTINUITY OF CARE
--- NOTE | 2017-05-18 12:50 | NUR ---
pt transported to [address] [place] [address]
--- NOTE | 2017-05-18 12:51 | NUR ---
TELE ADMIT FROM ER AFTER REPORT RECEIVED FROM MITA JACQUES. PATIENT ORIENTED TO PRIMARY RN, UNIT, ROOM, BED, AND UNIT POLICIES REGARDING PATIENT CARE AND VISITING HOURS. PATIENT NOW ON CONTINUOUS TELEMETRY MONITORING; READING ON ARRIVAL IS AFIB 107 UNCONTROLLED. PATIENT PLACED ON BEDSIDE OXYGEN, WEIGHED BY BED SCALE AND ENCOURAGED TO CALL IF SHE NEEDS SOMETHING. ALL QUESTIONS AND CONCERNS ADDRESSED, PATIENT VERBALIZED UNDERSTANDING.
[2017-05-18] MEDS ORDERED: LORA1TAB GT (12:59)
[2017-05-18] MEDS ORDERED: ONDANSETRON HCL/PF 4 MG/2 ML VIAL IVP PRN (13:00)
[2017-05-18] MEDS ORDERED: RENAL NOVASOURCE 1,000 ML BOTTLE GT PRN ×2 (16:30→18:00)
[2017-05-18] MEDS ORDERED: ACETAMINOPHEN 325 MG TABLET PO PRN (17:30)
[2017-05-18] MEDS: CHLORHEXIDINE GLUCONATE 15 ML UDC MM SCH ×2 (17:30→21:57)
[2017-05-18] MEDS ORDERED: VANCOMYCIN 500 MG in IV D5W 100 ML IV PRN (17:30)
[2017-05-18] MEDS ORDERED: POLYVINYL ALCOHOL 15 ML BOTTLE EACHEYE PRN (17:30)
[2017-05-18] MEDS ORDERED: CLONIDINE HCL 0.1 MG TABLET GT PRN (17:30)
[2017-05-18] MEDS ORDERED: HYDROCODONE/APAP 5/325MG 1 EACH TABLET GT PRN ×2 (17:30)
[2017-05-18] MEDS ORDERED: FEE PK DOSING 1 MIN EA MC ONE ×2 (17:31)
[2017-05-18] MEDS: DOCUSATE SODIUM LIQ 100 MG/10 ML UDC GT SCH (17:54)
[2017-05-18] MEDS: METOCLOPRAMIDE HCL 10 MG/10 ML UDC GT SCH (17:54)
[2017-05-18] MEDS: predniSONE 20 MG TABLET GT SCH (17:55)
[2017-05-18] MEDS: METOPROLOL TARTRATE 50 MG TABLET GT SCH (17:55)
[2017-05-18] MEDS: VIT B CMPLX 3/FA/VIT C/BIOTIN 1 TAB TABLET GT SCH (17:55)
[2017-05-18] MEDS: LACTOBACILLUS RHAMNOSUS GG 1 EACH CAP.SPRINK GT SCH (17:55)
[2017-05-18] MEDS: LEVOTHYROXINE SODIUM 125 MCG TABLET GT SCH (17:55)
[2017-05-18] MEDS: LORAZEPAM 1 MG TABLET GT PRN (17:55)
[2017-05-18] MEDS: ESCITALOPRAM OXALATE (10 MG) 10 MG TABLET GT SCH (17:55)
[2017-05-18] MEDS: AMLODIPINE BESYLATE 5 MG TABLET PO SCH (17:56)
[2017-05-18] MEDS ORDERED: Medication Not On Formulary EA (Melatonin 3 MG) GT SCH (18:00)
[2017-05-18] MEDS: HYDROGEL DRESSING 90 GM TUBE TP SCH (18:05)
--- NOTE | 2017-05-18 19:30 | NUR ---
RN NOTES RECEIVED PATIENT IN BED AWAKE, AO X 3, ABLE TO MAKE NEEDS KNOWN. NO ACUTE DISTRESS NOTED. DENIES ANY PAIN AT THIS TIME. TRACH INTACT; WITH T PIECE; ON COOL AEROSOL. VINNIE PICC LINE INTACT; FLUSHED. RIGHT IJ HD CATH INTACT. GT PATENT, INTACT; IN PLACE VIA AUSCULTATION. GTF ONGOING; NO RESIDUAL NOTED. HOB RAISED. ON LOW BED WITH BILATERAL UPPER SIDE RAILS UP; BED ALARM ON; CALL LIGHT WITHIN EASY REACH. WILL CONTINUE TO MONITOR. Addendum: 05/19/17 at 0157 by LISA PIKE RN TELE READING A FIB WITH PVC HR 91
[2017-05-18] MEDS: ALBUTEROL FS 2.5 MG/3 ML VIAL.NEB NEB SCH ×2 (19:42→23:42)
--- NOTE | 2017-05-18 19:44 | NUR ---
CHANGE OF SHIFT REPORT PT RESTING COMFORTABLY IN BED. NO S/S OR C/O PAIN OR DISTRESS NOTED. SIDE RAILS UP X2, CALL LIGHT LEFT WITHIN REACH. PT KEPT CLEAN, DRY, AND COMFORTABLE. NO SIGNIFICANT CHANGES SINCE ADMISSION. REPORT GIVEN TO SHEEBA JACQUES.
[2017-05-18 20:00] VITALS: BP 130/59
[2017-05-18] MEDS ORDERED: DEXTROSE 50%-WATER 50 ML DISP.SYRIN IV PRN (20:00)
[2017-05-18] MEDS: LORAZEPAM 1 MG TABLET GT SCH (21:09)
[2017-05-18] MEDS: INSULIN DETEMIR 100 UNIT/ML CARTRIDGE SQ SCH (21:11)
[2017-05-18] MEDS: INSULIN REGULAR, HUMAN 100 UNIT/ML 3 ML VIAL SQ PRN ×2 (21:13→23:47)
--- NOTE | 2017-05-18 21:57 | NUR ---
RN NOTES 1730 CHLORHEXIDINE NOT GIVEN BY DAY SHIFT NURSE. 2100 ADMINISTERED ORDERED.
[2017-05-18] MEDS: BLOOD SUGAR DIAGNOSTIC 1 EACH STRIP IN SCH (23:44)
[2017-05-19] VITALS (9 sets, daily range): BP systolic 98–141; BP diastolic 61–89
[2017-05-19] MEDS: ALBUTEROL FS 2.5 MG/3 ML VIAL.NEB NEB SCH ×6 (03:43→22:51)
[2017-05-19] MEDS: BLOOD SUGAR DIAGNOSTIC 1 EACH STRIP IN SCH ×3 (05:37→18:19)
[2017-05-19] MEDS: LORAZEPAM 1 MG TABLET GT PRN ×3 (06:00→18:13)
--- NOTE | 2017-05-19 06:00 | NUR ---
RN NOTES PATIENT C/O ANXIETY; REQUESTING FOR ATIVAN; ATIVAN GIVEN ORDERED. WILL CONTINUE TO MONITOR.
[2017-05-19 06:29] LABS: BASOPHILS % (AUTO) 0.2 % (0.0-2.0); HEMATOCRIT 36 % (33-45); HEMOGLOBIN 11.4 g/dL (11.5-14.8); LYMPHOCYTES # (AUTO) 1.4 /CMM (0.8-4.8); LYMPHOCYTES % (AUTO) 18.1 % (20.0-44.0); MEAN CORPUSCULAR HEMOGLOBIN 30 PG (26.0-33.0); MEAN CORPUSCULAR HGB CONC 32 g/dl (31.0-36.0); MEAN CORPUSCULAR VOLUME 96 fL (82-100); MONOCYTES # (AUTO) 0.3 /CMM (0.1-1.30); MONOCYTES % (AUTO) 3.6 % (2.0-12.0); NEUTROPHILS # (AUTO) 6.1 /CMM (1.8-8.9); NEUTROPHILS % (AUTO) 78.1 % (43.0-81.0); PLATELET COUNT (AUTO) 237 /CMM (150-450); RDW COEFFICIENT OF VARIATION 18.3 (11.5-15.0); RED BLOOD CELL COUNT(AUTO) 3.76 MIL/uL (4.0-5.2); WHITE BLOOD COUNT (AUTO) 7.8 K/uL (4.3-11.0)
--- NOTE | 2017-05-19 06:30 | NUR ---
RN NOTES PATIENT ASLEEP, EASILY AROUSABLE. RESPIRATIONS EVEN. NO SIGNS OF PAIN NOTED. DUE MEDS GIVEN WITH NO ASE NOTED. NEEDS ATTENDED. SAFETY PRECAUTIONS AND COMFORT MEASURES IN PLACE. WILL GIVE REPORT TO DAY SHIFT FOR CONTINUITY OF CARE.
[2017-05-19 06:46] LABS: CALCIUM, SERUM 8.6 mg/dL (8.5-10.1); CARBON DIOXIDE 27 mmol/L (21-32); CHLORIDE 100 mmol/L (98-107); CREATININE 1.8 mg/dL (0.6-1.3); GLUCOSE 285 mg/dL (74-106); POTASSIUM 5.6 mmol/L (3.5-5.1); SODIUM SERUM 133 mmol/L (136-145); UREA NITROGEN, BLOOD 52 mg/dL (7-18)
--- NOTE | 2017-05-19 07:30 | NUR ---
TELE/RN OPENING NOTES PT. IS IN BED SLEEPING, OPENS EYES SPONTANEOUSLY TO NAME. PT. IS A&OX4. BREATHING ON OXYGEN 5L/MIN WITH TRACHEOSTOMY WITH SPEAKER VALVE. T PIECE, COOL AEROSOL, AND SHILEY SIZE 6. TELE MONITOR READING A FIB, 107 BPM. PT. HAS G TUBE. LEFT UPPER ARM PICC LINE. BED IS IN LOW POSITION, 2 SIDE RAILS UP, AND CALL LIGHT WITHIN REACH.
[2017-05-19] MEDS: APIXABAN 5 MG TABLET PO SCH ×2 (09:00→18:13)
[2017-05-19] MEDS: HYDROGEL DRESSING 90 GM TUBE TP SCH (09:00)
--- NOTE | 2017-05-19 10:07 | NUR ---
TELE/RN NOTES PT. LEFT ROOM FOR VIDEO SWALLOW EVALUATION. NOTIFIED PHARMACY PHARMACY THAT PT. 'S FAMILY IS UNABLE TO BRING EPIQUIN MEDICATION FROM SNF.
[2017-05-19] MEDS ORDERED: BARIUM SULFATE 148 GM SUSP.RECON PO ONE (11:10)
[2017-05-19] MEDS ORDERED: BARIUM SULFATE 240 ML ORAL.SUSP PO ONE (11:10)
[2017-05-19] MEDS: LACTOBACILLUS RHAMNOSUS GG 1 EACH CAP.SPRINK GT SCH ×2 (12:01→18:14)
[2017-05-19] MEDS: LEVOTHYROXINE SODIUM 125 MCG TABLET GT SCH (12:02)
[2017-05-19] MEDS: predniSONE 20 MG TABLET GT SCH (12:02)
[2017-05-19] MEDS: PANTOPRAZOLE 40 MG/PACK PACK GT SCH ×2 (12:03→18:14)
[2017-05-19] MEDS: VIT B CMPLX 3/FA/VIT C/BIOTIN 1 TAB TABLET GT SCH (12:03)
[2017-05-19] MEDS: AMLODIPINE BESYLATE 5 MG TABLET PO SCH (12:03)
[2017-05-19] MEDS: METOPROLOL TARTRATE 50 MG TABLET GT SCH ×2 (12:03→18:14)
[2017-05-19] MEDS: METOCLOPRAMIDE HCL 10 MG/10 ML UDC GT SCH ×3 (12:04→18:14)
[2017-05-19] MEDS: DOCUSATE SODIUM LIQ 100 MG/10 ML UDC GT SCH ×2 (12:04→18:14)
[2017-05-19] MEDS: CHLORHEXIDINE GLUCONATE 15 ML UDC MM SCH ×2 (12:04→20:40)
[2017-05-19] MEDS: ESCITALOPRAM OXALATE (10 MG) 10 MG TABLET GT SCH (12:05)
[2017-05-19] MEDS: NITROGLYCERIN 0.4 MG/TAB BOTTLE SL PRN ×3 (12:14→12:29)
[2017-05-19] MEDS: MORPHINE SULFATE INJ 2 MG/ML DISP.SYRIN IV PRN ×2 (12:43→13:49)
[2017-05-19] MEDS ORDERED: IBUPROFEN 400 MG TABLET PO PRN (13:00)
[2017-05-19] MEDS: INSULIN REGULAR, HUMAN 100 UNIT/ML 3 ML VIAL SQ PRN ×3 (13:13→21:43)
[2017-05-19] MEDS ORDERED: ASPIRIN 325 MG TABLET PO ONE (16:00)
[2017-05-19] MEDS ORDERED: NITROGLYCERIN 0.1 MG/HR PATCH.TD24 TD SCH (16:00)
[2017-05-19] MEDS ORDERED: VANCOMYCIN 1 GM in IV D5W 250 ML IV ONE (17:00)
--- NOTE | 2017-05-19 19:30 | NUR ---
INVESTIGATIVE AGENT INITIAL NOTE RECEIVED PT AWAKE AND ALERT, ORIENTED X4, PT HAS A TRACH AND IS ON COOL AEROSOL, NO PAIN OR RESPIRATORY DISTRESS REPORTED DURING PHYSICAL ASSESSMENT, PT IS CLEAN/DRY AND COMFORTABLE, SAFETY MEASURES IN PLACE, NEEDS WILL BE ANTICIPATED AND ATTENDED TO PROMPTLY.
--- NOTE | 2017-05-19 19:30 | NUR ---
TELE/RN closing NOTES PT. IS AWAKE, A&OX4. BREATHING ON OXYGEN 5L/MIN WITH TRACHEOSTOMY WITH SPEAKER VALVE. T PIECE, COOL AEROSOL, AND SHILEY SIZE 6. TELE MONITOR READING A FIB, 91 BPM. PT. HAS G TUBE. LEFT UPPER ARM PICC LINE, IV FLUIDS RUNNING AT 250 ML/HR. BED IS IN LOW POSITION, 2 SIDE RAILS UP, AND CALL LIGHT WITHIN REACH. WILL ENDORSE REPORT TO CONSTRUCTION SALES REPRESENTATIVE NURSE. TOMMIEISCAN CONSENT SIGNED IN CHART. PT. WAS EXPLAINED SHE WILL BE NPO AFTER MIDNIGHT, AND NO CAFFEINE AFTER DINNER. WILL ENDORSE TO CONSTRUCTION SALES REPRESENTATIVE NURSE.
[2017-05-19] MEDS: NITROGLYCERIN 0.1 MG/HR PATCH.TD24 TD SCH (20:30)
[2017-05-19] MEDS: LORAZEPAM 1 MG TABLET GT SCH (21:40)
[2017-05-19] MEDS: INSULIN DETEMIR 100 UNIT/ML CARTRIDGE SQ SCH (21:42)
[2017-05-20] MEDS: BLOOD SUGAR DIAGNOSTIC 1 EACH STRIP IN SCH ×4 (00:03→17:33)
[2017-05-20] MEDS: INSULIN REGULAR, HUMAN 100 UNIT/ML 3 ML VIAL SQ PRN (00:12)
[2017-05-20 00:27] VITALS: BP 123/69
[2017-05-20] MEDS: ALBUTEROL FS 2.5 MG/3 ML VIAL.NEB NEB SCH ×5 (02:48→19:59)
[2017-05-20 04:25] VITALS: BP 152/93
[2017-05-20 06:52] VITALS: BP 152/93
--- NOTE | 2017-05-20 06:52 | NUR ---
MS RN CLOSING NOTE PT REMAINED STABLE DURING SHORTHAND TEACHER, WILL ENDORSE TO INCOMING NURSE FOR EDWARD.
--- NOTE | 2017-05-20 07:49 | NUR ---
RN NOTE RECEIVED PT, PT IS ASLEEP IN BED. NO S/S OF PAIN OR DISTRESS. PT IS ON THE TELE MONITOR, READING AFIV WITH PVCS. PICC LOCATED ON [facility]. SAFETY MEASURES IN PLACE. CALL LIGHT WITHIN REACH. WILL CONTINUE TO MONITOR. Addendum: 05/20/17 at 0751 by CARLY BRICENO *AFIB WITH PVCS
[2017-05-20 08:00] VITALS: BP 149/91
[2017-05-20] MEDS ORDERED: REGADENOSON 0.4 MG/5 ML DISP.SYRIN IVP ONE ×2 (08:00→13:00)
--- NOTE | 2017-05-20 08:48 | NUR ---
CHARGE NOTES PER DR. DEYVI TEE TELEMETRY.
[2017-05-20] MEDS: HYDROGEL DRESSING 90 GM TUBE TP SCH (09:00)
[2017-05-20] MEDS: predniSONE 20 MG TABLET GT SCH (09:00)
[2017-05-20] MEDS: METOCLOPRAMIDE HCL 10 MG/10 ML UDC GT SCH ×3 (09:00→17:26)
[2017-05-20] MEDS: PANTOPRAZOLE 40 MG/PACK PACK GT SCH ×2 (09:00→17:04)
[2017-05-20] MEDS: AMLODIPINE BESYLATE 5 MG TABLET PO SCH (09:00)
[2017-05-20] MEDS: VIT B CMPLX 3/FA/VIT C/BIOTIN 1 TAB TABLET GT SCH (09:00)
[2017-05-20] MEDS: LEVOTHYROXINE SODIUM 125 MCG TABLET GT SCH (09:00)
[2017-05-20] MEDS: APIXABAN 5 MG TABLET PO SCH ×2 (09:00→17:08)
[2017-05-20] MEDS: METOPROLOL TARTRATE 50 MG TABLET GT SCH ×2 (09:00→17:04)
[2017-05-20] MEDS: ESCITALOPRAM OXALATE (10 MG) 10 MG TABLET GT SCH (09:00)
[2017-05-20] MEDS: DOCUSATE SODIUM LIQ 100 MG/10 ML UDC GT SCH ×2 (09:00→17:04)
[2017-05-20] MEDS: LACTOBACILLUS RHAMNOSUS GG 1 EACH CAP.SPRINK GT SCH ×2 (13:15→17:04)
--- NOTE | 2017-05-20 15:57 | NUR ---
RN NOTES ACCUCHECK NOT PERFORMED AND REGLAN NOT GIVEN DUE TO PT BEING OUT OF THE UNIT FOR LEXISCAN. Addendum: 05/20/17 at 1857 by CARLY BRICENO PT REFUSED HYDROGEL DRESSING
[2017-05-20] MEDS: NITROGLYCERIN 0.1 MG/HR PATCH.TD24 TD SCH (16:00)
[2017-05-20 16:12] VITALS: BP 120/84
[2017-05-20 16:14] LABS: CALCIUM, SERUM 8.4 mg/dL (8.5-10.1); CARBON DIOXIDE 31 mmol/L (21-32); CHLORIDE 99 mmol/L (98-107); CREATININE 1.6 mg/dL (0.6-1.3); GLUCOSE 105 mg/dL (74-106); POTASSIUM 4.4 mmol/L (3.5-5.1); SODIUM SERUM 136 mmol/L (136-145); UREA NITROGEN, BLOOD 40 mg/dL (7-18)
--- NOTE | 2017-05-20 16:39 | NUR ---
NM:CARDIAC STRESS TEST WAS COMPLETED.TECH:RB.
[2017-05-20] MEDS: LORAZEPAM 1 MG TABLET GT PRN (17:13)
[2017-05-20] MEDS: CHLORHEXIDINE GLUCONATE 15 ML UDC MM SCH ×2 (17:13→21:10)
--- NOTE | 2017-05-20 18:37 | NUR ---
RN CLOSING NOTE PT IS IN BED, AWAKE. NO S/S OF SOB, DISTRESS, OR PAIN. PT IS BACK ON A MECHANICAL SOFT DIET. PT TO BE D/C BACK TO CARE FACILITY. ALL PT NEEDS MET. SAFETY MEASURES IN PLACE. CALL LIGHT WITHIN REACH. WILL ENDORSE TO BOILER RELINER FOR EDWARD.
--- NOTE | 2017-05-20 18:46 | NUR ---
MS GREEN COFFEE BLENDER KEIRA CALLED THAT PATIENT TO BE DISCHARGE TONIGHT, WAITING FOR HER TO CALL BACK FOR ETA.
--- NOTE | 2017-05-20 18:50 | NUR ---
MS RN CALLED PROCESS LINE OPERATOR, LEFT MESSAGE, FOR DISCHRGE, WAITING FOR HER TO CALL BACK.
--- NOTE | 2017-05-20 19:30 | NUR ---
FLUID PUMP OPERATOR NOTES RECEIVED RESTING COMFORTABLY ON BED,ON TRACH TO COOL AEROSOL,WITH SPEAKER VALVE,SHILEY #6.A/O X4,DIAPERED,WITH LEFT UPPER ARM PICC LINE FOR MEDS.VENKAT WOUND NOTED,RIGHT LOWER LEG DIEUDONNE.ISOLATION PRECAUTION FOR MRSA NARES, WILL START ON BACTROBAN TO BOTH NARES PROPHYLAXIS.REPOSITION TO COMFORT,CALL LIGHT IN REACH,NEEDS ANTICIPATED
--- NOTE | 2017-05-20 19:45 | NUR ---
PIE CUTTER NOTES SPOKE TO RILEY GAME FARM HELPER,PATIENT HAS D/C ORDER.PER REPORT YOMAIRA GAME FARM HELPER KNOWS ABOUT THE DISCHARGE,SHE TOLD DAY NURSE JEIMY THAT SHE WILL PREPARES D/C PAPERS BUT NOTHING HAS BEEN DONE.SPOKE TO JAMES AT [facility],MADE AWARE OF THE D/C,THAT PATIENT IS COMING BACK TO THEIR FACILITY.HE SAID THAT NOBODY CALL THEM YET ABOUT THE RE ADMISSION,INFORM THEM ALSO THAT PATIENT IS ISOLATION FOR MRSA NARES.SPOKE TO RILEY AGAIN AND SHE SAID SHE'LL TAKE CARE OF D/C TOMORROW.
[2017-05-20 20:00] VITALS: BP 126/89
--- NOTE | 2017-05-20 20:30 | NUR ---
LEARNING DISABILITIES SPECIALIST NOTES MARKIE CHU PAGE IN REGARDS TO DISCHARGE,CALL BACK AND SPOKE TO CHARGE NURSE.PATIENT WILL GO TONIGHT AND WILL CALL FACILITY FOR ADMISSION AND WILL ARRANGE FOR TRANSPORT WELL.
[2017-05-20] MEDS ORDERED: MUPIROCIN OINT 2% 22 GM TUBE SCH (21:00)
--- NOTE | 2017-05-20 21:00 | NUR ---
CLOTHING PATTERN PREPARER NOTES PICC LINE ON LEFT UPPER ARM REMOVED,DRESSING CHANGE WITH MEPILEX RIGHT UPPER ARM DONE COVERED WITH KERLIX PER PATIENT REQUEST.PICTURES DONE PER PROTOCOL ON D/C.REPORT GIVEN TO MICHAEL JACQUES AT THE FACILITY.
--- NOTE | 2017-05-20 23:00 | NUR ---
TRADEMARK AFFIXER NOTES [facility] F[facility] AT THIS TIME IN STABLE CONDITION.
== END 2017-05-20 23:00 | DRG 198 ==
LOC: ER 08:58 → TELE 12:09 → MED 05-20 09:51
PROVIDERS: ADMIT Internal Medicine; ATTEND Internal Medicine
PROC: 5A1D60Z (ICD-10-PCS; principal; 2017-05-18)
DX: I25.10 Atherosclerotic heart disease of native coronary artery without angina pectoris (principal); N17.0 Acute kidney failure with tubular necrosis; J96.10 Chronic respiratory failure, unspecified whether with hypoxia or hypercapnia; N18.6 End stage renal disease; D68.69 Other thrombophilia; I12.0 Hypertensive chronic kidney disease with stage 5 chronic kidney disease or end stage renal disease; Z93.0 Tracheostomy status; E11.22 Type 2 diabetes mellitus with diabetic chronic kidney disease; Z99.2 Dependence on renal dialysis; F41.9 Anxiety disorder, unspecified; E03.9 Hypothyroidism, unspecified; J44.9 Chronic obstructive pulmonary disease, unspecified; K21.9 Gastro-esophageal reflux disease without esophagitis; J96.11 Chronic respiratory failure with hypoxia; L98.8 Other specified disorders of the skin and subcutaneous tissue; L89.621 Pressure ulcer of left heel, stage 1; L89.611 Pressure ulcer of right heel, stage 1; I48.91 Unspecified atrial fibrillation; S41.101A Unspecified open wound of right upper arm, initial encounter; X58.XXXA Exposure to other specified factors, initial encounter; Y93.9 Activity, unspecified; Y92.129 Unspecified place in nursing home as the place of occurrence of the external cause; S91.001A Unspecified open wound, right ankle, initial encounter; R10.9 Unspecified abdominal pain; D64.9 Anemia, unspecified; E87.5 Hyperkalemia
CPT/HCPCS: 31720; 36415; 71010-TC; 74230-TC; 80048-TC; 80076-TC; 80202-TC; 82962-TC; 84484-TC; 85025-TC; 85730-TC; 87040-TC; 87081-TC; 90935-TC; 92521; 92526; 94640-TC; A4606; A6248; A6402; A9502; J1170; J1815; J2270; J2405; J2785; J3370; J7050; J7060; J8597; Z7610

== ENCOUNTER 2017-05-30 12:14 | Inpatient (IN) | payer MEDICAID, MEDICARE ==
[~2017-05-30] VITALS: Ht 162.6 cm; Wt 95.7 kg
[~2017-05-30 12:14] MED LIST changes: -APIX2.5T PO; -ASPI-991 PO; +LORA1TAB GT
--- NOTE | 2017-05-30 12:20 | NUR ---
BIB PRIVATE EMT FROM [facility],DIALYSIS CATHETER MALFUNCTION 1 HR 15 MIN INTO DIALYSIS. PT AAOX3. VSS. SEEN BY FOR EVAL. SAFETY AND COMFORT MEASURES PROVIDED. WILL MONITOR.
--- NOTE | 2017-05-30 12:30 | NUR ---
CUTTING AND CREASING PRESS OPERATOR AT FOR BLOOD DRAW.
--- NOTE | 2017-05-30 12:35 | NUR ---
XRAY DONE AT BS.
[2017-05-30 12:37] LABS: BASOPHILS # (AUTO) 0.4 /CMM (0.0-0.2); BASOPHILS % (AUTO) 3.9 % (0.0-2.0); EOSINOPHILS # (AUTO) 0.1 /CMM (0.0-0.7); HEMATOCRIT 36 % (33-45); HEMOGLOBIN 10.8 g/dL (11.5-14.8); LYMPHOCYTES # (AUTO) 2.4 /CMM (0.8-4.8); LYMPHOCYTES % (AUTO) 22.6 % (20.0-44.0); MEAN CORPUSCULAR HEMOGLOBIN 28 PG (26.0-33.0); MEAN CORPUSCULAR HGB CONC 30 g/dl (31.0-36.0); MEAN CORPUSCULAR VOLUME 93 fL (82-100); MONOCYTES % (AUTO) 9.8 % (2.0-12.0); NEUTROPHILS # (AUTO) 6.7 /CMM (1.8-8.9); NEUTROPHILS % (AUTO) 62.7 % (43.0-81.0); PLATELET COUNT (AUTO) 275 /CMM (150-450); RDW COEFFICIENT OF VARIATION 16.5 (11.5-15.0); RED BLOOD CELL COUNT(AUTO) 3.86 MIL/uL (4.0-5.2); WHITE BLOOD COUNT (AUTO) 10.6 K/uL (4.3-11.0)
[2017-05-30 12:49] LABS: INR 0.88 (0.87-1.13)
--- NOTE | 2017-05-30 12:53 | NUR ---
CALLED [facility], PROTECTIVE OFFICER WAS PAGED.
[2017-05-30 12:59] LABS: CALCIUM, SERUM 8.4 mg/dL (8.5-10.1); CARBON DIOXIDE 24 mmol/L (21-32); CHLORIDE 104 mmol/L (98-107); CREATININE 1.9 mg/dL (0.6-1.3); GLUCOSE 140 mg/dL (74-106); POTASSIUM 5.7 mmol/L (3.5-5.1); SODIUM SERUM 134 mmol/L (136-145); UREA NITROGEN, BLOOD 61 mg/dL (7-18)
[2017-05-30] MEDS ORDERED: AMLO5TAB2 GT (13:08)
[2017-05-30] MEDS ORDERED: LACT1CAP61 GT (13:08)
[2017-05-30 13:09] LABS: TROPONIN I 0.027 ng/mL (0.00-0.056)
--- NOTE | 2017-05-30 13:33 | NUR ---
REPORT GIVEN TO LAURI JACQUES FOR TELE 313
--- NOTE | 2017-05-30 14:25 | NUR ---
RN ADMITTING NOTES PATIENT ARRIVED TO UNIT. ROOM 313-1 FROM ER. NO SIGN AND SYMPTOMS OF DISTRESS. DENIED PAIN. WILL CONTINUE TO ASSESS AND MONITOR PATIENT THROUGH OUT MY SHIFT.
--- NOTE | 2017-05-30 15:34 | NUR ---
CALLED DR TIM FOR ADMITTING ORDERS. OPERATIONS PLANNER WILL PAGE
--- NOTE | 2017-05-30 15:48 | NUR ---
PAGED DR TIM FOR ORDERS
[2017-05-30 16:00] VITALS: BP 142/84
[2017-05-30] MEDS ORDERED: ALTEPLASE CATHFLO 2 MG/VIAL XX ONE (16:00)
--- NOTE | 2017-05-30 16:30 | NUR ---
PAGED DR TIM FOR ORDERS
--- NOTE | 2017-05-30 16:45 | NUR ---
DR TIM CALLED BACK WITH ORDERS. ORDERS FAXED TO PHARMACY
--- NOTE | 2017-05-30 17:45 | NUR ---
DIALYSIS NURSE AT BEDSIDE TO START DIALYSIS
[2017-05-30] MEDS ORDERED: CLONIDINE HCL 0.1 MG TABLET PO PRN (18:30)
[2017-05-30] MEDS ORDERED: POLYVINYL ALCOHOL 15 ML BOTTLE EACHEYE PRN (18:30)
[2017-05-30] MEDS: METOPROLOL TARTRATE 50 MG TABLET PO SCH (18:30)
[2017-05-30] MEDS ORDERED: HOME MED MISCELLANEOUS XX SCH (18:30)
[2017-05-30] MEDS ORDERED: ALBUTEROL HALF STRENGTH 1.25 MG/3 ML VIAL.NEB NEB PRN (18:30)
[2017-05-30] MEDS ORDERED: HYDROCODONE/APAP 5/325MG 1 EACH TABLET PO PRN ×2 (18:30)
[2017-05-30] MEDS: DOCUSATE SODIUM 100 MG CAPSULE PO SCH (18:30)
[2017-05-30] MEDS: AMLODIPINE BESYLATE 5 MG TABLET PO SCH (18:30)
[2017-05-30] MEDS ORDERED: LORAZEPAM 1 MG TABLET PO PRN (18:30)
[2017-05-30] MEDS ORDERED: ACETAMINOPHEN 325 MG TABLET PO PRN (18:30)
[2017-05-30] MEDS: ESCITALOPRAM OXALATE (10 MG) 10 MG TABLET PO SCH (18:30)
[2017-05-30] MEDS: METOCLOPRAMIDE HCL 10 MG/10 ML UDC PO SCH (18:30)
[2017-05-30] MEDS: ACIDOPHILUS/BULGARICUS 1 EACH TAB.CHEW PO SCH (18:30)
--- NOTE | 2017-05-30 19:30 | NUR ---
TELE/RN RECEIVE PATIENT AWAKE, ALERT, ORIENTED, TRACH TO AEROSOL MIST, COMFORTABLE, NO C/O PAIN, NO DISTRESS NOTED, DIALYSIS IN PROGRESS, CALL LIGHT IN REACH. WILL MONITOR.
--- NOTE | 2017-05-30 19:45 | NUR ---
RN CLOSING NOTES REPORT GAVE TO LEAD TECHNICIAN NURSE. PATIENT IS ALERT AND ORIENTED TO NAME, PLACE AND TIME. TRACH TO ARESOL MIST AT 10L OXYGEN. PATIENT IS CURRENTLY ON DIALYSIS. BED IN LOW POSITION, LOCKED AND TWO SIDE RAILS ARE UP. ALL NURSING CARE ANTICIPATED. PATIENT KEPT DRY AND CLEAN. PICTURE WERE NOT TAKEN DUE TO NURSING AVAILABILITY, ENDORSED TO LEAD TECHNICIAN NURSE.
[2017-05-30 20:00] VITALS: BP 134/64
--- NOTE | 2017-05-30 21:00 | NUR ---
PLACED PT ON CA 28% 5L, RN LASHONDA NOTIFIED. SPO2 99%, HR 94, NO RESPIRATORY DISTRESS NOTED
[2017-05-30] MEDS ORDERED: LORAZEPAM 1 MG TABLET PO SCH (22:00)
[2017-05-30] MEDS ORDERED: INSULIN DETEMIR 100 UNIT/ML CARTRIDGE SQ SCH (22:00)
--- NOTE | 2017-05-30 23:12 | NUR ---
TELE/RN PATIENT IS SLEEPING AT THIS TIME, AROUSABLE, APPEAR COMFORTABLE, NO SIGNS OF DISTRESS NOTED. CALL LIGHT IN REACH. WILL CONTINUE TO MONITOR.
[2017-05-31] VITALS: BP 145/87
[2017-05-31 04:30] VITALS: BP 154/103
--- NOTE | 2017-05-31 04:49 | NUR ---
TELE/RN C/O HEADACHE, TYLENOL 650 MG PO WAS GIVEN ORDERED. WILL MONITOR.
--- NOTE | 2017-05-31 06:08 | NUR ---
TELE/RN BLOOD SUGAR WAS CHECKED, = 58, PATIENT IS ASYMPTOMATIC, AWAKE, ALERT, ORIENTED, APPLE JUICE AND PUDDING WERE GIVEN. WILL RECHECK AFTER 30 MINUTES. WILL MONITOR.
--- NOTE | 2017-05-31 06:27 | NUR ---
TELE/RN BP 104/53, HR 98.
[2017-05-31 06:32] VITALS: BP 104/58
--- NOTE | 2017-05-31 06:49 | NUR ---
TELE/RN BLOOD SUGAR RECHECKED, 100.
[2017-05-31 07:13] LABS: BASOPHILS % (AUTO) 0.3 % (0.0-2.0); EOSINOPHILS # (AUTO) 0.1 /CMM (0.0-0.7); EOSINOPHILS % (AUTO) 1.2 % (0.0-6.0); HEMATOCRIT 33 % (33-45); HEMOGLOBIN 10.5 g/dL (11.5-14.8); LYMPHOCYTES % (AUTO) 40.6 % (20.0-44.0); MEAN CORPUSCULAR HEMOGLOBIN 30 PG (26.0-33.0); MEAN CORPUSCULAR HGB CONC 32 g/dl (31.0-36.0); MEAN CORPUSCULAR VOLUME 95 fL (82-100); MONOCYTES # (AUTO) 1.1 /CMM (0.1-1.30); MONOCYTES % (AUTO) 11.4 % (2.0-12.0); NEUTROPHILS # (AUTO) 4.6 /CMM (1.8-8.9); NEUTROPHILS % (AUTO) 46.5 % (43.0-81.0); PLATELET COUNT (AUTO) 199 /CMM (150-450); RDW COEFFICIENT OF VARIATION 17.2 (11.5-15.0); RED BLOOD CELL COUNT(AUTO) 3.45 MIL/uL (4.0-5.2); WHITE BLOOD COUNT (AUTO) 9.9 K/uL (4.3-11.0)
--- NOTE | 2017-05-31 07:16 | NUR ---
commercial solar sales consultant initial notes Received patient in bed, asleep, head of bed elevated, no SOB or distress noted, on cool aerosol 10L and tolerated well. Patient is alert and oriented mouthing words. HD cath in placed covered with dressing. On tele monitor controlled afib heart rate of 97, no facial grimace noted. IV intact and patent. Kept patient clean and comfortable in bed, call light with in patient reach, will continue to monitor accordingly.
[2017-05-31] MEDS ORDERED: LEVOTHYROXINE SODIUM 125 MCG TABLET PO SCH (07:30)
[2017-05-31 07:41] LABS: CALCIUM, SERUM 7.7 mg/dL (8.5-10.1); CARBON DIOXIDE 27 mmol/L (21-32); CHLORIDE 104 mmol/L (98-107); CREATININE 1.5 mg/dL (0.6-1.3); GLUCOSE 62 mg/dL (74-106); MAGNESIUM 2.2 mg/dL (1.8-2.4); PHOSPHORUS 3.6 mg/dL (2.5-4.9); POTASSIUM 4.8 mmol/L (3.5-5.1); SODIUM SERUM 139 mmol/L (136-145); UREA NITROGEN, BLOOD 41 mg/dL (7-18)
[2017-05-31 08:00] VITALS: BP 134/89
[2017-05-31] MEDS: DOCUSATE SODIUM 100 MG CAPSULE PO SCH ×2 (08:32→12:29)
[2017-05-31] MEDS: ACIDOPHILUS/BULGARICUS 1 EACH TAB.CHEW PO SCH ×2 (08:32→12:30)
[2017-05-31] MEDS: METOCLOPRAMIDE HCL 10 MG/10 ML UDC PO SCH ×2 (08:32→12:29)
[2017-05-31] MEDS: AMLODIPINE BESYLATE 5 MG TABLET PO SCH (08:33)
[2017-05-31] MEDS: ESCITALOPRAM OXALATE (10 MG) 10 MG TABLET PO SCH (08:33)
[2017-05-31] MEDS: METOPROLOL TARTRATE 50 MG TABLET PO SCH (08:33)
[2017-05-31] MEDS ORDERED: VIT B CMPLX 3/FA/VIT C/BIOTIN 1 TAB TABLET PO SCH (09:00)
[2017-05-31] MEDS ORDERED: predniSONE 20 MG TABLET PO SCH (09:00)
[2017-05-31 10:00] LABS: LYMPHOCYTES % (MANUAL) 38 % (16-48); NEUTROPHILS % (MANUAL) 50 (42-76)
[2017-05-31 10:01] LABS: EOSINOPHILS % (MANUAL) 2 % (0-4); MONOCYTES % (MANUAL) 10 % (0-11.0)
[2017-05-31 12:00] VITALS: BP 152/92
--- NOTE | 2017-05-31 14:50 | NUR ---
die polishermeat scrubber notes Discharge instructions given to patient RN at [facility] and able to understand instructions. IV discontinued and pressured applied to prevent bleeding. No SOB or distress noted. Flu vaccine not given due to out of season, pneumonia vaccine not given due to patient refusal explained the risk and benefits x 3 and still refused. Patient left in stable condition via gurney accompanied by 2 EMT's from med [facility] ambulance. No Complaint of pain of discomfort noted nor chest pain. Vital signs checked and recorded. Spoke Tiana at [facility] and report given. MD and charge nurse aware. Skin assessment done and picture filed in the patient's chart.
== END 2017-05-31 15:00 | DRG 466 ==
LOC: ER 12:18 → TELE 13:41
PROVIDERS: ADMIT Internal Medicine; ATTEND Internal Medicine
PROC: 5A1D00Z (ICD-10-PCS; principal; 2017-05-30)
DX: T82.41XA Breakdown (mechanical) of vascular dialysis catheter, initial encounter (principal); N18.6 End stage renal disease; J96.11 Chronic respiratory failure with hypoxia; Z93.0 Tracheostomy status; J96.12 Chronic respiratory failure with hypercapnia; R53.2 Functional quadriplegia; I12.0 Hypertensive chronic kidney disease with stage 5 chronic kidney disease or end stage renal disease; D68.69 Other thrombophilia; R13.10 Dysphagia, unspecified; E11.22 Type 2 diabetes mellitus with diabetic chronic kidney disease; Z88.1 Allergy status to other antibiotic agents; Y84.1 Kidney dialysis as the cause of abnormal reaction of the patient, or of later complication, without mention of misadventure at the time of the procedure; Y92.129 Unspecified place in nursing home as the place of occurrence of the external cause; Z88.5 Allergy status to narcotic agent; Z99.2 Dependence on renal dialysis; D64.9 Anemia, unspecified; E03.9 Hypothyroidism, unspecified; E66.9 Obesity, unspecified; E87.5 Hyperkalemia; E87.70 Fluid overload, unspecified; F32.9 Major depressive disorder, single episode, unspecified; I25.10 Atherosclerotic heart disease of native coronary artery without angina pectoris; K21.9 Gastro-esophageal reflux disease without esophagitis; Z93.1 Gastrostomy status; Z68.36 Body mass index [BMI] 36.0-36.9, adult
CPT/HCPCS: 31720; 36415; 71010-TC; 80048-TC; 82962-TC; 83735-TC; 84100-TC; 84484-TC; 85025-TC; 85730-TC; 87081-TC; 90935-TC; 94640-TC; A4606; A6403; J1815; J2997; J8597; Z7610